=== PATIENT | female | born 1940 | race Caucasian/White ===

== ENCOUNTER → 2016-12-29 | Outpatient (CLI) | payer MEDICARE, BC ==
--- NOTE | 2017-01-04 10:02 | P.ARTDOP ---
Arterial Doppler LOWER EXTREMITY ARTERIAL DOPPLER: DATE OF SERVICE: 12/29/2016 Reason for study: Bilateral foot numbness and claudication. Doppler waveforms: Multiphasic bilaterally throughout. Pulse volume recording: Normal configuration. Pressure gradients: None. Ankle-brachial indices: Greater than 1 bilaterally. Toe pressures: 106 on the right, 120 on the left Impression: Normal study.
== END | disposition home or self-care (01) ==
LOC: RADUSWWP 11:51
PROVIDERS: ATTEND Family Medicine
DX: I73.9 Peripheral vascular disease, unspecified (principal)
CPT/HCPCS: 93923

== ENCOUNTER 2021-10-20 07:27 | Day surgery (SDC) | payer MEDICARE, BC ==
[2021-10-18 09:06] VITALS: BMI 24.0
[2021-10-20] MEDS ORDERED: LIDOCAINE 1% (10MG/ML) FOR IV START INTRADERMA PRN (07:28)
[2021-10-20] MEDS ORDERED: LACTATED RINGERS 1,000 ML IV SCH (07:28)
[2021-10-20 08:18] VITALS: TEMP 97
[2021-10-20 08:19] LABS: Glucose,Whole Blood 174 mg/dL (70-110)
[2021-10-20] MEDS ORDERED: PROPOFOL 10 MG/ML 50 ML VIAL IV ONE (08:23)
--- NOTE | 2021-10-20 08:48 | P.PCN ---
Date of Procedure: 10/20/21 Procedure(s) Performed: BRIEF HISTORY: Patient is a 80-year-old pleasant female scheduled for an elective colonoscopy as a part of evaluation of prior history of colon polyps. Her last colonoscopy was 3 years ago. PROCEDURE PERFORMED: Colonoscopy with snare polypectomy. PREOPERATIVE DIAGNOSIS: History of colon polyps. IV sedation per Anesthesia. PROCEDURE: After informed consent was obtained, the patient, was brought into the endoscopy unit. IV sedation was administered by Anesthesia under continuous monitoring. Digital rectal examination was normal. Initially the Olympus CF-160 flexible video colonoscope was then inserted in the rectum, gradually advanced into the cecum without any difficulty. Careful examination was performed as the scope was gradually being withdrawn. Ileocecal valve and the appendiceal orifice were visualized and appeared normal. Prep was excellent. Mucosa of the cecum, appeared normal. Ascending colon there was a 3 mm and 1 cm polyp removed by snare polypectomy. In the transverse colon there was a 7 mm polyp removed by snare polypectomy. Rest of the ascending colon, transverse colon, descending colon, sigmoid colon, and rectum appeared normal. Scattered sigmoid diverticulosis. Retroflexion was performed in the rectum and no lesions were seen. The patient tolerated the procedure well. IMPRESSION: 3 mm and 1 cm ascending colon polyp status post polypectomy 7 mm transverse colon polyp status post polypectomy Scattered sigmoid diverticulosis RECOMMENDATIONS: Findings of this examination were discussed with the patient as well as her family. She was advised to follow with the biopsy results. If the biopsy reveals adenoma she can have a repeat colonoscopy in 3 years..
[2021-10-20 08:50] VITALS: PULSE 56
[2021-10-20 09:11] VITALS: BP 139/67; RESP 18
== END 2021-10-20 09:30 | disposition home or self-care (01) ==
LOC: ORWHC2ENDO 07:27
PROVIDERS: ATTEND Internal Medicine Gastroenterology
DX: Z12.11 Encounter for screening for malignant neoplasm of colon (principal); D12.2 Benign neoplasm of ascending colon; D12.3 Benign neoplasm of transverse colon; K57.30 Diverticulosis of large intestine without perforation or abscess without bleeding; Z86.010 Personal history of colon polyps; I10 Essential (primary) hypertension; E11.9 Type 2 diabetes mellitus without complications; Z79.84 Long term (current) use of oral hypoglycemic drugs; Z79.899 Other long term (current) drug therapy; Z88.7 Allergy status to serum and vaccine; Z87.891 Personal history of nicotine dependence; Z80.7 Family history of other malignant neoplasms of lymphoid, hematopoietic and related tissues
CPT/HCPCS: 88305; 45385; J2704

== ENCOUNTER → 2023-05-03 | Outpatient (CLI) | payer MEDICARE, BC ==
--- NOTE | 2023-05-03 15:29 | USB ---
Risk Values: Nancy 5 year model risk: 1.0%. NCI Lifetime model risk: 1.4%. Technique: Method: Whole Breast Handheld. Findings: The whole breast of the left breast, the axilla of the left breast and the retroareolar of the left breast were scanned. A complete US of all four quadrants of the breast, axilla, and retro-areolar region were reviewed. At the 11:00 position, 6 cm from the nipple, sonographic correlate, there is a 7 x 6 x 6 mm vertically orientated irregular hypoechoic mass with echogenic halo that is very suspicious. No other solid or cystic lesion. No axillary lymphadenopathy. Overall Assessment: Highly suggestive of malignancy, BI-RAD 5 Management: Ultrasound Core Biopsy of the left breast. A 3-D MLO and 3-D LM view can be added to the patient's workup on the day of biopsy. Electronically signed and approved by: Neptali Flowers M.D. Radiologist
== END | disposition home or self-care (01) ==
LOC: RADUSWWP 11:44
PROVIDERS: ATTEND Family Medicine
DX: R92.8 Other abnormal and inconclusive findings on diagnostic imaging of breast (principal)

== ENCOUNTER → 2023-05-12 | Outpatient (CLI) | payer MEDICARE, BC ==
--- NOTE | 2023-05-15 08:53 | MM ---
Reason for Exam: Additional evaluation requested from abnormal screening. Last screening mammogram was performed 2 month(s) ago. Risk Values: Nancy 5 year model risk: 1.0%. NCI Lifetime model risk: 1.4%. Tissue Density: Left: The breast tissue is heterogeneously dense. This may lower the sensitivity of mammography. Findings: Analyzed By CAD. On the lateral view, patient's suspicious mass at the 11:00 position is identified. There is a central asymmetric density middle to posterior depth also present but this does not persist on additional views. Proceed with biopsy of the 11:00 mass. Overall Assessment: Highly suggestive of malignancy, BI-RAD 5 Management: Ultrasound Core Biopsy of the left breast. Electronically signed and approved by: Neptali Flowers M.D. Radiologist
== END | disposition home or self-care (01) ==
LOC: RADMAMWWP 12:48
PROVIDERS: ATTEND Family Medicine
DX: Z53.9 Procedure and treatment not carried out, unspecified reason (principal)

== ENCOUNTER → 2023-05-17 | Day surgery (SDC) | payer MEDICARE, BC ==
--- NOTE | 2023-05-24 13:55 | MM ---
Reason for Exam: Post Procedure Mammogram. Last screening mammogram was performed 2 month(s) ago. Patient History: Menarche at age 17. First Full-Term at age 21. Postmenopausal. Risk Values: Nancy 5 year model risk: 1.3%. NCI Lifetime model risk: 1.7%. Prior Study Comparison: 02/26/2019 Bilateral Screening Mammogram, [facility]. 03/05/2020 Bilateral Screening Mammogram, [facility]. 03/09/2021 Bilateral Screening Mammogram, [facility]. 03/10/2022 Bilateral Screening Mammogram, [facility]. 03/14/2023 Bilateral Screening Mammogram, [facility]. 05/12/2023 Left MG 3D work up w/cad LT, [facility]. Tissue Density: Left: The breasts are heterogeneously dense, which may obscure small masses. Pathology Description: Location: 11 o'clock. Marker Left Behind. Needle Type: Mammotome Cores: 5 Skin Nicks: 1 Gauge: 13 The procedure of ultrasound guided core biopsy was explained to the patient. Benefits, alternatives, and risks were discussed. An informed consent was then obtained. A timeout was performed. The patient was placed in supine positioning for imaging and for the procedure. The overlying skin was prepped and draped in usual sterile fashion. Lidocaine was used as anesthetic into the skin and subcutaneous tissue up to area of concern in the left breast. A small skin john was made with surgical scalpel. Under ultrasound guidance, a 12-gauge vacuum assisted biopsy gun device was used to obtain 5 core samples. A biopsy clip was left in lesion. Hydromark butterfly core marker was placed. The patient tolerated the procedure well without any immediate complication. The patient was kept in the radiology department for short stay after the procedure and then discharged home in stable condition. Postprocedure mammogram: The patient was transferred to mammography for physician ordered post procedure mammogram for clip placement verification. Clip is in appropriate location for the patient's biopsy. Impression: Successful ultrasound guided core biopsy of area of concern in the left breast, full pathology results to follow. Recommendations: 1. Recommendations are pending pathology results. Pathology Results: Result: Malignant, Invasive ductal carcinoma. LEFT BREAST, ELEVEN O'CLOCK, NEEDLE CORE BIOPSY: Invasive well differentiated ductal carcinoma (grade 1). See Surgical Pathology Cancer Case Summary. Overall Assessment: Malignant Assessment: MG diagnostic mammo LT wo CAD. - Left: Known biopsy proven malignancy, BI-RAD 6. Management: Diagnostic Mammogram of the left breast in 6 months. Surgical Consultation of the left breast. Electronically signed and approved by: Junior Guo D.O. Radiologis
== END ==
LOC: RADUSWWP 09:32
PROVIDERS: ATTEND Family Medicine
DX: C50.412 Malignant neoplasm of upper-outer quadrant of left female breast (principal)
CPT/HCPCS: 88305; 88342; 88341; 77065; 19083; A4648

== ENCOUNTER → 2023-06-29 | Outpatient (CLI) | payer MEDICARE, BC ==
--- NOTE | 2023-06-29 12:49 | P.GSCN ---
History of Present Illness Consult date: 06/29/23 Reason for Consult: left breast stage 1 invasive ductal cancer Requesting physician: Kindra Khanna History of present illness: Aysha is an 82 year old female seen in consultation for Dr. Khanna regarding a biopsy proven left breast invasive ductal cancer. She had a bilateral mammogram on 03-14-23, this led to a left breast diagnostic mammogram on 05-12-23, and an ultrasound of the left breast on 05-03-23. A lesion at 11:00 was noted that was about 8 mm in size. Biopsy was done on 05-17-23. The lesion was G1, ER+Pr+Her2- invasive ductal cancer. She did not feel anything of concern prior to the biopsy. The mammogram was a routine mammogram. She has not had any biopsies of her breast in the past. She is not complaining of any trauma or infection of the breast. She has not had any nipple discharge or skin changes. She has never had any surgery on her breast. Caffiene: tea, 2 cups/day nicotine: none BCP: for about 2 years, in remote past chocolate: occasional Family History: mother: Hodgkins paternal uncle: leukemia at 84 Hormonal History: menarche: 16 , breast fed: no, age at first : 21 menopause: 53 hormones: none Surgical History: lichen sclerosis/ biopsy Blepharoplasty cataract surgery Medical History: collitis constipation gullian barree at 32 no vaccines since then Social History: nicotine: none alcohol: weekly wine drugs: none Review of Systems - Constitutional Denies fever, Denies weight loss - EENT Eyes: denies blurred vision Ears: bilateral: tinnitus, deny: decreased hearing Ears, nose, mouth and throat: Denies dysphagia - Breasts bilateral: as per HPI - Cardiovascular Denies chest pain, Denies shortness of breath - Respiratory Denies cough, Denies 7 - Gastrointestinal Reports as per HPI, Reports constipation - Genitourinary Genitourinary: Denies dysuria, Denies hematuria Menstruation: Reports postmenopausal - Musculoskeletal Reports myalgias - Integumentary Denies rash, Denies unusual bruising - Neurological Reports weakness - Psychiatric Reports anxiety - Endocrine Reports weight change - Hematologic/Lymphatic Denies easy bleeding, Denies easy bruising - Allergic/Immunologic Reports seasonal allergies Past Medical History Past Medical History: GERD/Reflux, Hypertension Additional Past Medical History / Comment(s): 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 History of Any Multi-Drug Resistant Organisms: None Reported Past Surgical History: No Surgical Hx Reported Additional Past Surgical History / Comment(s): colonoscopy Past Anesthesia/Blood Transfusion Reactions: No Reported Reaction - Sexual Orientation/Gender Identity What was your sex assigned at ?: Female Preferred Pronoun: She/Her/Hers Past Psychological History: No Psychological Hx Reported Smoking Status: Former smoker Past Alcohol Use History: Occasional Additional Past Alcohol Use History / Comment(s): quit smoking in her 40's , smoked occasionally. Past Drug Use History: None Reported - Past Family History Mother Family Medical History: Cancer Additional Family Medical History / Comment(s): hodgkins Medications and Allergies Home Medications Medication Instructions Recorded Confirmed Type Acetaminophen [Tylenol Extra 500 mg PO DAILY PRN 10/18/21 06/29/23 History Strength] Betamethasone Dipropionate 1 applic TOPICAL DAILY 10/18/21 06/29/23 History [Diprolene 0.05% Lotion] Enalapril [Vasotec] 20 mg PO DAILY 10/18/21 06/29/23 History Zolpidem [Ambien] 10 mg PO HS PRN 10/18/21 06/29/23 History amLODIPine 10 mg PO DAILY 10/18/21 06/29/23 History metFORMIN HCL [Glucophage] 500 mg PO BID 10/18/21 06/29/23 History Allergies Allergy/AdvReac Type Severity Reaction Status Date / Time VACCINES Allergy Unknown unable to Uncoded 06/29/23 12:23 take due to guillian barre. Surgical - Exam Vital Signs Temp Pulse Resp BP Pulse Ox 97.8 F 104 H 17 122/90 97 06/29/23 12:24 06/29/23 12:24 06/29/23 12:24 06/29/23 12:24 06/29/23 12:24 - General moderate distress - Eyes normal ocular movement - ENT no hearing loss - Neck trachea midline - Respiratory normal respiratory effort, clear to auscultation - Cardiovascular Rhythm: regular Heart Sounds: normal: S1, S2 - Abdomen Abdomen: soft, non tender, no guarding, no rigid, no rebound - Integumentary normal turgor - Neurologic no disoriented, no combative - Musculoskeletal normal gait - Psychiatric oriented to time, oriented to person, oriented to place, speech is normal, memory intact Breast Exam: BRA: 36B Inspection: grade 2 ptosis bilateral palpation: right breast: Multi positional exam fibrocystic changes no dominant masses or nodules of concern Right axilla: No adenopathy of concern Left breast: Multi positional exam no dominant masses or nodules of concern Left axilla: No adenopathy of concern Left breast biopsy site clean and dry well-healed no evidence of infection or hematoma Results Mammogram personally reviewed with Dr. 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 Khanna
[2023-06-29 12:58] VITALS: BP 122/90; PULSE 104; RESP 17; TEMP 97.8
== END ==
LOC: WWCWWP 11:22
PROVIDERS: ATTEND Surgery
DX: Z01.818 Encounter for other preprocedural examination (principal); C50.912 Malignant neoplasm of unspecified site of left female breast; G62.9 Polyneuropathy, unspecified; Z87.891 Personal history of nicotine dependence; Z17.0 Estrogen receptor positive status [ER+]; Z88.7 Allergy status to serum and vaccine

== ENCOUNTER → 2023-08-10 | Outpatient (CLI) | payer MEDICARE, BC ==
--- NOTE | 2023-08-10 12:40 | P.PN ---
Subjective Progress Note Date: 08/10/23 Principal diagnosis: left breast invasive ductal cancer [id number]+Pr+Her2-G1 stage IA History of Present Illness Consult date: 08-10-23 Reason for Consult: left breast stage 1 invasive ductal cancer Requesting physician: Kindra Khanna History of present illness: Aysha is an 82 year old female seen in consultation for Dr. Khanna regarding a biopsy proven left breast invasive ductal cancer. She had a bilateral mammogram on 03-14-23, this led to a left breast diagnostic mammogram on 05-12-23, and an ultrasound of the left breast on 05-03-23. A lesion at 11:00 was noted that was about 8 mm in size. Biopsy was done on 05-17-23. The lesion was G1, ER+Pr+Her2- invasive ductal cancer. She did not feel anything of concern prior to the biopsy. The mammogram was a routine mammogram. She has not had any biopsies of her breast in the past. She is not complaining of any trauma or infection of the breast. She has not had any nipple discharge or skin changes. She has never had any surgery on her breast. The patient's case was presented at tumor board and 07-11-2023. The consensus was for a needle localization lumpectomy with no sentinel node biopsy. I have called the patient and discussed this with the patient. She will most likely receive hormone therapy. She will meet with radiation oncology but may not need radiation therapy. The patient is aware and will be seen in the near future. The case was reviewed with Dr. Armijo, it appears that the clip has migrated and the lesion to be localized is ultrasound localization of the tumor. Preoperative clearance by Dr. Armendariz Presentation of case at tumor board After discussion with the patient she would prefer to have a needle localization lumpectomy with possible oncoplastic tissue transfer, she would like to avoid a sentinel node biopsy. We have discussed the choosing wisely guidelines and this is reasonable Caffiene: tea, 2 cups/day nicotine: none BCP: for about 2 years, in remote past chocolate: occasional Family History: mother: Hodgkins paternal uncle: leukemia at 84 Hormonal History: menarche: 16 , breast fed: no, age at first : 21 menopause: 53 hormones: none Surgical History: lichen sclerosis/ biopsy Blepharoplasty cataract surgery Medical History: collitis constipation gullian barree at 32 no vaccines since then Social History: nicotine: none alcohol: weekly wine drugs: none Review of Systems - Constitutional Denies fever, Denies weight loss - EENT Eyes: denies blurred vision Ears: bilateral: tinnitus, deny: decreased hearing Ears, nose, mouth and throat: Denies dysphagia - Breasts bilateral: as per HPI - Cardiovascular Denies chest pain, Denies shortness of breath - Respiratory Denies cough - Gastrointestinal Reports as per HPI, Reports constipation - Genitourinary Genitourinary: Denies dysuria, Denies hematuria Menstruation: Reports postmenopausal - Musculoskeletal Reports myalgias - Integumentary Denies rash, Denies unusual bruising - Neurological Reports weakness - Psychiatric Reports anxiety - Endocrine Reports weight change - Hematologic/Lymphatic Denies easy bleeding, Denies easy bruising - Allergic/Immunologic Reports seasonal allergies Past Medical History Past Medical History: GERD/Reflux, Hypertension Additional Past Medical History / Comment(s): 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 History of Any Multi-Drug Resistant Organisms: None Reported Past Surgical History: No Surgical Hx Reported Additional Past Surgical History / Comment(s): colonoscopy Past Anesthesia/Blood Transfusion Reactions: No Reported Reaction - Sexual Orientation/Gender Identity What was your sex assigned at ?: Female Preferred Pronoun: She/Her/Hers Past Psychological History: No Psychological Hx Reported Smoking Status: Former smoker Past Alcohol Use History: Occasional Additional Past Alcohol Use History / Comment(s): quit smoking in her 40's , smoked occasionally. Past Drug Use History: None Reported - Past Family History Mother Family Medical History: Cancer Additional Family Medical History / Comment(s): hodgkins Medications and Allergies Home Medications Medication Instructions Recorded Confirmed Type Acetaminophen [Tylenol Extra 500 mg PO DAILY PRN 10/18/21 06/29/23 History Strength] Betamethasone Dipropionate 1 applic TOPICAL DAILY 10/18/21 06/29/23 History [Diprolene 0.05% Lotion] Enalapril [Vasotec] 20 mg PO DAILY 10/18/21 06/29/23 History Zolpidem [Ambien] 10 mg PO HS PRN 10/18/21 06/29/23 History amLODIPine 10 mg PO DAILY 10/18/21 06/29/23 History metFORMIN HCL [Glucophage] 500 mg PO BID 10/18/21 06/29/23 History Allergies Allergy/AdvReac Type Severity Reaction Status Date / Time VACCINES Allergy Unknown unable to Uncoded 06/29/23 12:23 take due to guillian barre. Objective - Vital Signs Vital signs: Vital Signs Temp 98.1 F 08/10/23 12:13 Pulse 104 H 08/10/23 12:13 Resp 17 08/10/23 12:13 BP 128/83 08/10/23 12:13 Pulse Ox 98 08/10/23 12:13 FiO2 Intake & Output 08/09/23 08/10/23 08/10/23 18:59 06:59 18:59 Weight 60.328 kg - Constitutional General appearance: Present: cooperative - EENT Eyes: Present: EOMI ENT: Present: hearing grossly normal - Neck Neck: Present: normal ROM - Respiratory Respiratory: bilateral: CTA - Cardiovascular Heart sounds: normal: S1, S2 - Integumentary Integumentary: Present: normal turgor - Musculoskeletal Musculoskeletal: Present: gait normal - Psychiatric Psychiatric: Present: A&O x's 3, appropriate affect, intact judgment & insight - Additional findings Additional findings: Breast Exam: BRA: 36B Inspection: grade 2 ptosis bilateral palpation: right breast: Multi positional exam fibrocystic changes no dominant masses or n odules of concern Right axilla: No adenopathy of concern Left breast: Multi positional exam no dominant masses or nodules of concern Left axilla: No adenopathy of concern Left breast biopsy site clean and dry well-healed no evidence of infection or hematoma Assessment and Plan Assessment: Impression: 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 Armijo, it appears that the clip has migrated and the lesion to be localized is ultrasound localization of the tumor. Preoperative clearance by Dr. Armendariz Presentation of case at tumor board After discussion with the patient she would prefer to have a needle localization lumpectomy with possible oncoplastic tissue transfer, she would like to avoid a sentinel node biopsy. We have discussed the choosing wisely guidelines and this is reasonable. Risk and benefits of the procedure discussed with the patient. Risk include but are not limited to bleeding, infection, reaction to the anesthetic. If the margins were to be positive further tissue acquisition may be necessary. She understands and wishes to proceed. education given to patient 08-10-23 Functional Assessment: arm abduction passed 08-09 CC: Dr. Khanna
[2023-08-10 13:08] VITALS: BP 128/83; PULSE 104; RESP 17; TEMP 98.1
== END ==
LOC: WWCWWP 11:47
PROVIDERS: ATTEND Surgery
DX: C50.912 Malignant neoplasm of unspecified site of left female breast (principal); G62.9 Polyneuropathy, unspecified; Z17.0 Estrogen receptor positive status [ER+]; Z88.7 Allergy status to serum and vaccine; Z87.891 Personal history of nicotine dependence

== ENCOUNTER 2023-08-29 07:05 | Day surgery (SDC) | payer MEDICARE, BC ==
[~2023-08-29 07:05] MED LIST: MIDAZOLAM 2 MG/2 ML VIAL IV PRN
[2023-08-29 08:27] LABS: Glucose,Whole Blood 169 mg/dL (70-110)
[2023-08-29] MEDS: ACETAMINOPHEN TAB 500 MG TAB PO PRN (08:34)
[2023-08-29] MEDS: LACTATED RINGERS 1,000 ML IV SCH (08:36)
[2023-08-29] MEDS: IV FLUID CONTINUATION 1,000 ML IV ONE (08:38)
[2023-08-29] MEDS: ONDANSETRON 4 MG/2 ML VIAL IVP ONE (09:29)
[2023-08-29] MEDS: HEPARIN SODIUM,PORCINE 5,000 UNIT/ML 1 ML VIAL SQ PRN (09:29)
[2023-08-29] MEDS: DEXAMETHASONE SOD PHOSPHATE 4 MG/ML 1 ML VIAL IV ONE (09:29)
[2023-08-29] MEDS ORDERED: PROPOFOL 10 MG/ML 20 ML VIAL IV ONE (11:55)
[2023-08-29] MEDS ORDERED: PHENYLEPHRINE-0.9% NACL SYG 1,000 MCG/10 ML SYRINGE ONE (11:55)
[2023-08-29] MEDS ORDERED: LIDOCAINE 1% INJ 10MG/ML (20 ML MDV) ONE (11:55)
[2023-08-29] MEDS ORDERED: fentaNYL (PF) 50 MCG/ML 2 ML AMP ONE (11:55)
[2023-08-29] MEDS: LIDOCAINE 1% INJ 10MG/ML (20 ML MDV) SQ ONE ×2 (12:31→13:13)
--- NOTE | 2023-08-29 13:22 | P.BCAON ---
Date of Procedure: 08/29/23 Preoperative Diagnosis: Left breast invasive ductal carcinoma Postoperative Diagnosis: Same Procedure(s) Performed: Needle localization lumpectomy, oncoplastic tissue transfer 41 cm Anesthesia: KULDIPA Surgeon: Jazzmine Adams Estimated Blood Loss (ml): 5 IV fluids (ml): 300 Pathology: other (breast tissue) Condition: stable Disposition: same day Indications for Procedure: Biopsy-proven left breast invasive ductal carcinoma Operative Findings: Fibrofatty breast tissue Description of Procedure: The patient was initially seen in the radiology department where needle localization of the area of concern was performed. The patient did not want to have a sentinel node biopsy performed. And utilizing the choosing wisely criteria 1 was not recommended. The patient was then brought to the operative suite. Following induction of anesthesia the left breast was prepped and draped in a sterile fashion. An incision was made near the area of the needle. Dissection was performed through the breast tissue to the shaft of the needle. The specimen was grasped using an Allis clamp. Wide excision was performed. The tip of the needle was embedded in the pectoralis muscle. This was dissected free. Posterior dissection was on the pectoralis muscle. The specimen was removed and painted for orientation. Radiograph of the specimen revealed the area of concern had been removed. The cavity was well irrigated using saline solution. The cavity was 6 x 3 cm. A superior pedicle 5 x 3 cm was developed. An inferior pedicle 4 x 2 cm was developed. Hemostasis was attained using the electrocautery device. Surgicel powder form was placed. Titanium clips were placed. Again posterior dissection was on the pectoralis muscle. The superior and inferior pillars were brought together using 3-0 Vicryl suture. After we are sure that hemostasis was attained the deep tissues were closed using 3-0 Vicryl suture. The skin was closed using 4-0 Monocryl. Surgical glue was placed. Prior to this 10 cc of 1% lidocaine was used to anesthetize the area. The patient tolerated the procedure in stable condition. All instrument and sponge counts were correct at the end of the case. - Sentinal Node Biopsy Operation performed with curative intent: Yes Tracer(s) used in upfront surgery (non-neoadjuvant): N/A Tracer(s) used in the neoadjuvant setting: N/A - Axillary Lymph Node Dissection Operation performed with curative intent: No
--- NOTE | 2023-08-29 13:26 | P.NAPBC ---
NAPBC Queries - NAPBC Queries Was patient's case review presented at [facility] tumor board? If no, comment.: Yes Was patient's pathology reviewed at [facility]? If no, comment.: Yes Was breast conservation surgery offered? If no, comment.: Yes Was sentinel node biopsy offered? If no, comment.: Yes (choose to follow chosing wisely guidelines, no SNB) Was diagnosis confirmed by percutaneous core biopsy? If no, comment.: Yes Is patient mastectomy patient?: No Was a preop referral to reconstructive surgeon offered?: No Clinical Stage: stage IA [id number]-G1, left breast invasive ductal carcinoma
[2023-08-29 13:44] VITALS: TEMP 97.8
[2023-08-29] MEDS: HYDROmorphone 0.5 MG/0.5 ML SYRINGE IVP PRN (13:46)
[2023-08-29 14:02] LABS: Glucose,Whole Blood 167 mg/dL (70-110)
[2023-08-29 14:40] VITALS: BP 137/63; PULSE 116; RESP 17
== END 2023-08-29 15:04 | disposition home or self-care (01) ==
LOC: OR 07:05
PROVIDERS: ATTEND Surgery
DX: C50.412 Malignant neoplasm of upper-outer quadrant of left female breast (principal); Z17.0 Estrogen receptor positive status [ER+]; I10 Essential (primary) hypertension; K21.9 Gastro-esophageal reflux disease without esophagitis; F41.9 Anxiety disorder, unspecified; E11.69 Type 2 diabetes mellitus with other specified complication; E78.5 Hyperlipidemia, unspecified; E11.40 Type 2 diabetes mellitus with diabetic neuropathy, unspecified; I48.91 Unspecified atrial fibrillation; Z87.891 Personal history of nicotine dependence; Z88.7 Allergy status to serum and vaccine; Z79.84 Long term (current) use of oral hypoglycemic drugs; Z79.899 Other long term (current) drug therapy
CPT/HCPCS: 88307; 77065; 76098; 76999; 19285; 19301; 14301; J1644; J1100; J0690; J2405; J2001; J3010; J2704; J1170; J2371

== ENCOUNTER → 2023-09-04 | Outpatient (CLI) | payer MEDICARE, BC ==
[2023-09-04 11:36] VITALS: BP 127/81; PULSE 120; RESP 17; TEMP 97.6
--- NOTE | 2023-09-04 11:41 | P.BCPO ---
Progress Note - Text Progress Note Date: 09/04/23 Aysha is an 82 year old status post left breast lumpectomy on 08-29-23. This revealed a 1.2 cm invasive ductal cancer, all margins (-). She tolerated the procedure without difficulty. She did have some constipation postprocedure but has taken some laxatives and this is resolved. Examination: Lungs: Clear Heart: S1-S2 Incision: Clean and dry there is some mild swelling most likely consistent with a small seroma which is asymptomatic at this time Impression: Patient doing well postoperative Plan: Follow-up radiation oncology Follow-up medical oncology Follow-up here in 4 months Follow-up sooner any questions or concerns Post Op Education - Post Op Education Post Op Education Provided Date: 09/04/23 - Functional Assessment Performed?: Yes (arm abduction) Path Report - Was patient given path report? Path Report Date Given: 09/04/23
== END ==
LOC: WWCWWP 11:17
PROVIDERS: ATTEND Surgery
DX: Z48.817 Encounter for surgical aftercare following surgery on the skin and subcutaneous tissue (principal); L76.82 Other postprocedural complications of skin and subcutaneous tissue; Z98.890 Other specified postprocedural states; Z85.3 Personal history of malignant neoplasm of breast; Z88.7 Allergy status to serum and vaccine

== ENCOUNTER → 2023-11-03 | Outpatient (CLI) | payer MEDICARE, BC ==
[~2023-11-03] MED LIST changes: -MIDAZOLAM 2 MG/2 ML VIAL IV PRN; +REGADENOSON 0.4 MG/5 ML SYRINGE IV ONE
--- NOTE | 2023-11-24 13:19 | CA ---
Lexiscan Nuclear Stress Test Report Name: Aysha Loo Exam Date: 11/03/2023 10:25 Exam Location: [place] Stress Ht (in): 64 Wt (lb): 130 BSA: 1.63 Ordering Phys: Referring Phys: ALESIA DOSHI Technologist: Ponce Leyva Age: 82 Gender: F : 1940 Procedure CPT: Indications: ICD-10 Codes: Patient History: Abnormal EKG, palpitations and hypertension Medications: Meds past 24 hrs: Pretest Chest Pain: STRESS TEST Lexiscan Protocol Exercise Duration (min:sec): 02:[address] Depressions (mm): Angina Score: Perez Score: Resting HR (bpm): 108 Peak HR (bpm): 142 Resting BP (mmHg): 136 / 89 Peak BP (mmHg): 129 / 88 MPHR: 138 Target HR: 117 % MPHR: 103 METS: 1.0 Total Dose: Peak Dose: Atropine: Double Product: 61617 BP Response: Stress Termination: TEST COMPLETE Stress Symptoms: No chest pain or symptoms Stress Summary: ECG ANALYSIS Resting ECG: Atrial fibrillation, heart rate 116 beats a minute, normal axis, nonspecific ST changes Stress ECG: A. fib ablation heart rate 120 beats a minute CONCLUSIONS RESTING EKG: Atrial fibrillation with heart rate of 116 bpm, normal axis, nonspecific ST changes at rest Patient recieved IV infusion of Lexiscan 0.4mg and at peak infusion STRESS EKG showed: Atrial fibrillation with a heart rate of 125 bpm, normal axis and nonspecific ST changes. No significant ST changes diagnostic for ischemia. There were no significant ectopic beats or sustained arrhythmias other than baseline atrial fibrillation CONCLUSION: 1. Normal hemodynamic and heart response to Lexiscan infusion. 2. Non-ischemic EKG response to lexiscan infusion 3. Nuclear perfusion imaging is reported separately by the radiology team. Please refer to that report for complete interpretation of this study. Dr Mart Hernandez (Electronically Signed) Final Date: 03 November 2023 11:58
--- NOTE | 2023-12-06 13:07 | NM ---
EXAMINATION TYPE: NM stress cardiolite complete DATE OF EXAM: 11/04/2023 COMPARISON: NONE HISTORY: Coronary artery disease, heart palpitations TECHNIQUE: After the intravenous administration of 10.1 mCi Tc 99m Sestamibi - Cardiolite resting SP ECT images acquired. At peak stress 24 mCi Tc 99m Sestamibi - Stress images obtained. The patient was stressed with 0.4mg Lexiscan. FINDINGS: No fixed defects are evident. No reversible stress defects on Spect images. Very abnormal wall motion is evident with uncoordinated ventricular contraction. Some areas of dyskin esia. Be present including the cardiac apex, anterior wall and inferior wall Ejection fraction is calculated to be very low at 28 %. Correlate with echocardiography. IMPRESSION: 1. No obvious fixed or reversible perfusion defects. 2. Abnormal wall motion with a very low ejection fraction 28%. Recommend echocardiography for correla tion.
== END | disposition home or self-care (01) ==
LOC: RADNMMAIN 08:16
PROVIDERS: ATTEND Internal Medicine
DX: I25.10 Atherosclerotic heart disease of native coronary artery without angina pectoris (principal); I10 Essential (primary) hypertension; I48.91 Unspecified atrial fibrillation
CPT/HCPCS: 93017; 78452; A9500; J2785

== ENCOUNTER → 2023-12-27 | Outpatient (CLI) | payer MEDICARE, BC ==
[2023-12-27 09:48] VITALS: BP 137/83; PULSE 79; RESP 16; TEMP 98.2
--- NOTE | 2023-12-27 10:22 | P.PN ---
Subjective Progress Note Date: 12/27/23 Principal diagnosis: left breast invasive ductal cancer [id number]+Her2-G1 stage IA, Apr 2023 left breast invasive ductal cancer [id number]+Pr+Her2-G1 stage I April, left breast stage 1 invasive ductal cancer Requesting physician: Kindra Khanna History of present illness: Aysha is an 83 year old female seen in consultation for Dr. Khanna regarding a biopsy proven left breast invasive ductal cancer. She had a bilateral mammogram on 03-14-23, this led to a left breast diagnostic mammogram on 05-12-23, and an ultrasound of the left breast on 05-03-23. A lesion at 11:00 was noted that was about 8 mm in size. Biopsy was done on 05-17-23. The lesion was G1, ER+Pr+Her2- invasive ductal cancer. She did not feel anything of concern prior to the biopsy. The mammogram was a routine mammogram. She had not had any biopsies of her breast in the past. The patient's case was presented at tumor board and 07-11-2023. The consensus was for a needle localization lumpectomy with no sentinel node biopsy. I called the patient and discussed this with the patient. She will most likely receive hormone therapy. She will meet with radiation oncology but may not need radiation therapy. The patient is aware and will be seen in the near future. The patient on 08-29-23 underwent a left breast lumpectomy, this revelaed a 1.2 cm invasive ductal cancer, all margins were (-). note radiation oncology 09-20-23 reviewed and discussed with the patient, she opted to omit radiation therapy Dr. 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 and she has AFIB, she will have a cath She had Yusuf Juarez at the age of 33 and this may also have affected her feet Caffiene: tea, 2 cups/day nicotine: none BCP: for about 2 years, in remote past chocolate: occasional Family History: mother: Hodgkins paternal uncle: leukemia at 84 Hormonal History: menarche: 16 , breast fed: no, age at first : 21 menopause: 53 hormones: none Surgical History: lichen sclerosis/ biopsy Blepharoplasty cataract surgery Medical History: collitis constipation gullian barree at 32 no vaccines since then Social History: nicotine: none alcohol: weekly wine drugs: none Review of Systems - Constitutional Denies fever, Denies weight loss - EENT Eyes: denies blurred vision Ears: bilateral: tinnitus, deny: decreased hearing Ears, nose, mouth and throat: Denies dysphagia - Breasts bilateral: as per HPI - Cardiovascular Denies chest pain, Denies shortness of breath - Respiratory Denies cough - Gastrointestinal Reports as per HPI, Reports constipation - Genitourinary Genitourinary: Denies dysuria, Denies hematuria Menstruation: Reports postmenopausal - Musculoskeletal Reports myalgias - Integumentary Denies rash, Denies unusual bruising - Neurological Reports weakness - Psychiatric Reports anxiety - Endocrine Reports weight change - Hematologic/Lymphatic Denies easy bleeding, Denies easy bruising - Allergic/Immunologic Reports seasonal allergies Past Medical History Past Medical History: GERD/Reflux, Hypertension Additional Past Medical History / Comment(s): 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 History of Any Multi-Drug Resistant Organisms: None Reported Past Surgical History: No Surgical Hx Reported Additional Past Surgical History / Comment(s): colonoscopy Past Anesthesia/Blood Transfusion Reactions: No Reported Reaction - Sexual Orientation/Gender Identity What was your sex assigned at ?: Female Preferred Pronoun: She/Her/Hers Past Psychological History: No Psychological Hx Reported Smoking Status: Former smoker Past Alcohol Use History: Occasional Additional Past Alcohol Use History / Comment(s): quit smoking in her 40's , smoked occasionally. Past Drug Use History: None Reported - Past Family History Mother Family Medical History: Cancer Additional Family Medical History / Comment(s): hodgkins Medications and Allergies Home Medications Medication Instructions Recorded Confirmed Type Acetaminophen [Tylenol Extra 500 mg PO DAILY PRN 10/18/21 06/29/23 History Strength] Betamethasone Dipropionate 1 applic TOPICAL DAILY 10/18/21 06/29/23 History [Diprolene 0.05% Lotion] Enalapril [Vasotec] 20 mg PO DAILY 10/18/21 06/29/23 History Zolpidem [Ambien] 10 mg PO HS PRN 10/18/21 06/29/23 History amLODIPine 10 mg PO DAILY 10/18/21 06/29/23 History metFORMIN HCL [Glucophage] 500 mg PO BID 10/18/21 06/29/23 History Allergies Allergy/AdvReac Type Severity Reaction Status Date / Time VACCINES Allergy Unknown unable to Uncoded 06/29/23 12:23 take due to guillian barre. Objective - Vital Signs Vital signs: Vital Signs Temp 98.2 F 12/27/23 09:46 Pulse 79 12/27/23 09:46 Resp 16 12/27/23 09:46 BP 137/83 12/27/23 09:46 Pulse Ox 99 12/27/23 09:46 FiO2 Intake & Output 12/26/23 12/27/23 12/27/23 18:59 06:59 18:59 Weight 59.874 kg - Constitutional General appearance: Present: cooperative - EENT Eyes: Present: EOMI ENT: Present: hearing grossly normal - Neck Neck: Present: normal ROM - Respiratory Respiratory: bilateral: CTA - Cardiovascular Rhythm: regular Heart sounds: normal: S1, S2 - Integumentary Integumentary: Present: normal turgor - Musculoskeletal Musculoskeletal: Present: gait normal - Psychiatric Psychiatric: Present: A&O x's 3, appropriate affect, intact judgment & insight - Additional findings Additional findings: Breast Exam: BRA: 36B Inspection: grade 2 ptosis bilateral palpation: right breast: Multi positional exam fibrocystic changes no dominant masses or nodules of concern Right axilla: No adenopathy of concern Left breast: Multi positional exam no dominant masses or nodules of concern. well healed scar from prior surgery Left axilla: No adenopathy of concern Left breast biopsy site clean and dry well-healed no evidence of infection or hematoma Assessment and Plan Assessment: Impression: Stage Ia invasive ductal carcinoma left breast Neuropathy Plan: ordered repeat bilateral mammogram in February 2024 with appointment at that time patient to follow up at that time reviewed notes medical and radiation oncology CC: Dr. Armendariz
== END ==
LOC: WWCWWP 09:20
PROVIDERS: ATTEND Surgery
DX: Z85.3 Personal history of malignant neoplasm of breast

== ENCOUNTER → 2024-03-18 | Outpatient (CLI) | payer MEDICARE, BC ==
--- NOTE | 2024-03-18 10:30 | MM ---
Reason for Exam: Follow-up at short interval from prior study. Last screening mammogram was performed 12 month(s) ago. Patient History: Menarche at age 17. First Full-Term at age 21. Postmenopausal. Breast cancer, left, age 82. Breast cancer, left, age 82. 08/29/2023, Lumpectomy on the Left side. 08/29/2023, Malignant US breast localization LT on the left side. 05/17/2023, Malignant US biopsy breast VAD LT on the left side. Tissue Density: The breasts are heterogeneously dense, which may obscure small masses. Findings: Analyzed By CAD. The pattern is symmetrical. Postsurgical changes within the left breast with multiple surgical clips present. Scar marker overlies. Benign calcifications present bilaterally. Benign vascular calcification is present bilaterally No suspicious groups of microcalcifications, spiculated or lobular masses, architectural distortion or other secondary signs of malignancy are mammographically apparent. Overall Assessment: Benign, BI-RAD 2 Management: Diagnostic Mammogram of both breasts in 6 months. A negative mammogram report should not preclude additional follow up of suspicious palpable abnormalities. Patient should continue monthly self breast exam. A clinical breast exam by your physician is recommended on an annual basis and results should be correlated with mammographic findings. Note on Nancy scores and lifetime risk: 1. A Nancy score greater than 3% is considered moderate risk. If this is the case, consider specialist referral to assess eligibility for a risk reducing agent. 2. If overall lifetime risk for the development of breast cancer is 20% or higher, the patient may qualify for future screening with alternating mammogram and breast MRI. [facility], , 03/18/2024 10:23 AM. Electronically signed and approved by: Junior Guo D.O. Radiologis
== END | disposition home or self-care (01) ==
LOC: RADMAMWWP 09:56
PROVIDERS: ATTEND Surgery
DX: R92.333 Mammographic heterogeneous density, bilateral breasts (principal); Z78.0 Asymptomatic menopausal state; Z85.3 Personal history of malignant neoplasm of breast
CPT/HCPCS: 77066; G0279; 77062

== ENCOUNTER → 2024-03-29 | Outpatient (CLI) | payer MEDICARE, BC ==
[2024-03-29 12:56] VITALS: BP 119/76; PULSE 75; RESP 17; TEMP 97.5
--- NOTE | 2024-03-29 13:03 | P.PN ---
Subjective Progress Note Date: 03/29/24 Principal diagnosis: left breast invasive ductal cancer [id number]+Pr+Her2-G1 stage IA, Apr 2023 03-29-24 Principal diagnosis: left breast invasive ductal cancer [id number]+Pr+Her2-G1 stage IA, Apr 2023 Requesting physician: Kindra Khanna History of present illness: 12-27-23 Aysha is an 83 year old female seen in consultation for Dr. Khanna regarding a biopsy proven left breast invasive ductal cancer. She had a bilateral mammogram on 03-14-23, this led to a left breast diagnostic mammogram on 05-12-23, and an ultrasound of the left breast on 05-03-23. A lesion at 11:00 was noted that was about 8 mm in size. Biopsy was done on 05-17-23. The lesion was G1, ER+Pr+Her2- invasive ductal cancer. She did not feel anything of concern prior to the biopsy. The mammogram was a routine mammogram. She had not had any biopsies of her breast in the past. The patient's case was presented at tumor board and 07-11-2023. The consensus was for a needle localization lumpectomy with no sentinel node biopsy. I called the patient and discussed this with the patient. She will most likely receive hormone therapy. She will meet with radiation oncology but may not need radiation therapy. The patient is aware and will be seen in the near future. The patient on 08-29-23 underwent a left breast lumpectomy, this revelaed a 1.2 cm invasive ductal cancer, all margins were (-). note radiation oncology 09-20-23 reviewed and discussed with the patient, she opted to omit radiation therapy Dr. 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 All margins (-). declined radiation therapy declined endocrine therapy bilateral mammogram on 03-18-24 BIRAD 2, personally interpreted; repeat in 6 months She is not complaining of any new lumps masses or nodules of concern Caffiene: tea, 2 cups/day nicotine: none BCP: for about 2 years, in remote past chocolate: occasional Family History: mother: Hodgkins paternal uncle: leukemia at 84 Hormonal History: menarche: 16 , breast fed: no, age at first : 21 menopause: 53 hormones: none Surgical History: lichen sclerosis/ biopsy Blepharoplasty cataract surgery Medical History: collitis constipation gullian barree at 32 no vaccines since then Social History: nicotine: none alcohol: weekly wine drugs: none Review of Systems - Constitutional Denies fever, Denies weight loss - EENT Eyes: denies blurred vision Ears: bilateral: tinnitus, deny: decreased hearing Ears, nose, mouth and throat: Denies dysphagia - Breasts bilateral: as per HPI - Cardiovascular Denies chest pain, Denies shortness of breath - Respiratory Denies cough - Gastrointestinal Reports as per HPI, Reports constipation - Genitourinary Genitourinary: Denies dysuria, Denies hematuria Menstruation: Reports postmenopausal - Musculoskeletal Reports myalgias - Integumentary Denies rash, Denies unusual bruising - Neurological Reports weakness - Psychiatric Reports anxiety - Endocrine Reports weight change - Hematologic/Lymphatic Denies easy bleeding, Denies easy bruising - Allergic/Immunologic Reports seasonal allergies Past Medical History Past Medical History: GERD/Reflux, Hypertension Additional Past Medical History / Comment(s): 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 History of Any Multi-Drug Resistant Organisms: None Reported Past Surgical History: No Surgical Hx Reported Additional Past Surgical History / Comment(s): colonoscopy Past Anesthesia/Blood Transfusion Reactions: No Reported Reaction - Sexual Orientation/Gender Identity What was your sex assigned at ?: Female Preferred Pronoun: She/Her/Hers Past Psychological History: No Psychological Hx Reported Smoking Status: Former smoker Past Alcohol Use History: Occasional Additional Past Alcohol Use History / Comment(s): quit smoking in her 40's , smoked occasionally. Past Drug Use History: None Reported - Past Family History Mother Family Medical History: Cancer Additional Family Medical History / Comment(s): hodgkins Medications and Allergies Home Medications Medication Instructions Recorded Confirmed Type Acetaminophen [Tylenol Extra 500 mg PO DAILY PRN 10/18/21 06/29/23 History Strength] Betamethasone Dipropionate 1 applic TOPICAL DAILY 10/18/21 06/29/23 History [Diprolene 0.05% Lotion] Enalapril [Vasotec] 20 mg PO DAILY 10/18/21 06/29/23 History Zolpidem [Ambien] 10 mg PO HS PRN 10/18/21 06/29/23 History amLODIPine 10 mg PO DAILY 10/18/21 06/29/23 History metFORMIN HCL [Glucophage] 500 mg PO BID 10/18/21 06/29/23 History Allergies Allergy/AdvReac Type Severity Reaction Status Date / Time VACCINES Allergy Unknown unable to Uncoded 06/29/23 12:23 take due to guillian barre. Objective - Constitutional General appearance: Present: cooperative - EENT Eyes: Present: EOMI ENT: Present: hearing grossly normal - Neck Neck: Present: normal ROM - Respiratory Respiratory: bilateral: CTA - Cardiovascular Rhythm: regular Heart sounds: normal: S1, S2 - Integumentary Integumentary: Present: normal turgor - Musculoskeletal Musculoskeletal: Present: gait normal - Psychiatric Psychiatric: Present: A&O x's 3, appropriate affect, intact judgment & insight - Additional findings Additional findings: Breast Exam: BRA: 36B Inspection: grade 2 ptosis bilateral palpation: right breast: Multi positional exam fibrocystic changes no dominant masses or nodules of concern Right axilla: No adenopathy of concern Left breast: Multi positional exam no dominant masses or nodules of concern. well healed scar from prior surgery Left axilla: No adenopathy of concern Left breast biopsy site clean and dry well-healed no evidence of infection or hematoma Assessment and Plan Assessment: Impression: Stage Ia invasive ductal carcinoma left breast 2023 Neuropathy Plan: bilateral mammogram in 6 months with appointment will follow with medical oncology, she is not taking any endocrine therapy CC: Dr. Armendariz
== END ==
LOC: WWCWWP 12:03
PROVIDERS: ATTEND Surgery
DX: C50.912 Malignant neoplasm of unspecified site of left female breast (principal); E11.40 Type 2 diabetes mellitus with diabetic neuropathy, unspecified; Z88.7 Allergy status to serum and vaccine; Z17.0 Estrogen receptor positive status [ER+]; Z17.21 Progesterone receptor positive status

== ENCOUNTER → 2024-09-16 | Outpatient (CLI) | payer MEDICARE, BC ==
--- NOTE | 2024-09-16 13:40 | MM ---
Reason for Exam: Hx of breast cancer, conservation therapy. Last screening mammogram was performed 6 month(s) ago. Patient History: Menarche at age 17. First Full-Term at age 21. Postmenopausal. Breast cancer, left, age 82. Breast cancer, left, age 82. 08/29/2023, Lumpectomy on the Left side. 08/29/2023, Malignant US breast localization LT on the left side. 05/17/2023, Malignant US biopsy breast VAD LT on the left side. Prior Study Comparison: 02/26/2019 Bilateral Screening Mammogram, [facility]. 03/05/2020 Bilateral Screening Mammogram, [facility]. 03/09/2021 Bilateral Screening Mammogram, [facility]. 03/10/2022 Bilateral Screening Mammogram, [facility]. 03/14/2023 Bilateral Screening Mammogram, [facility]. 05/12/2023 Left MG 3D work up w/cad LT, [facility]. 05/17/2023 Left MG diagnostic mammo LT wo CAD., [facility]. 08/29/2023 Left MG diagnostic mammo LT wo CAD., [facility]. 03/18/2024 Bilateral MG 3D diag mammo w/cad [facility], [facility]. Tissue Density: The breasts are heterogeneously dense, which may obscure small masses. Findings: Analyzed By CAD. Postsurgical and posttreatment changes left breast. Benign vascular and a few scattered oral cyst calcifications are redemonstrated. No significant change from prior exams. Overall Assessment: Probably benign, BI-RAD 3 Management: Diagnostic Mammogram of the left breast in 6 months. Ongoing short interval follow-up left breast for recent breast cancer treatment. Results were given to the patient verbally at the time of exam. Patient should continue monthly self-breast exams. A clinical breast exam by your physician is recommended on an annual basis. This exam should not preclude additional follow-up of suspicious palpable abnormalities. [facility], , 09/16/2024 1:36 PM. Electronically signed and approved by: Neptali Flowers M.D. Radiologist
== END | disposition home or self-care (01) ==
LOC: RADMAMWWP 13:00
PROVIDERS: ATTEND Surgery
DX: R92.333 Mammographic heterogeneous density, bilateral breasts (principal); R92.1 Mammographic calcification found on diagnostic imaging of breast; Z85.3 Personal history of malignant neoplasm of breast; Z98.890 Other specified postprocedural states; Z78.0 Asymptomatic menopausal state
CPT/HCPCS: 77066; G0279; 77062

== ENCOUNTER 2024-10-04 21:31 | Inpatient (IN) | payer MEDICARE, BC ==
[2024-10-04 22:20] LABS: Bacteria,Urine Rare /hpf; Bilirubin,Urine Negative (Negative); Blood,Urine Negative (Negative); Color,Urine Light Yellow; Glucose,Urine (UA) Negative (Negative); Hyaline Casts,Urine 3 /lpf (0-2); Ketones,Urine Negative (Negative); Leukocyte Esterase,Urine Small (Negative); Nitrite,Urine Negative (Negative); PH, Urine 6.5 (5.0-8.0); Protein,Urine Negative (Negative); RBC,Urine <1 /hpf (0-5); Specific Gravity,Urine 1.008 (1.001-1.035); Squamous Epithelial Cell,Urine <1 /hpf (0-4); Urobilinogen,Urine <2.0 mg/dL (<2.0); WBC,Urine 7 /hpf (0-5)
[2024-10-04 22:21] LABS: Basophils # (A) 0.06 10*3/uL (0.00-0.10); Basophils % (A) 0.3 %; Eosinophils # (A) 0.10 10*3/uL (0.04-0.35); Eosinophils % (A) 0.5 %; HCT 43.5 % (37.2-46.3); HGB 15.0 g/dL (12.0-15.0); Lymphocytes # (A) 1.21 10*3/uL (0.90-5.00); Lymphocytes % (A) 6.3 %; MCH 32.5 pg (27.0-32.0); MCHC 34.5 g/dL (32.0-37.0); MCV 94.4 fL (80.0-97.0); Monocytes # (A) 1.35 10*3/uL (0.20-1.00); Monocytes % (A) 7.0 %; Neutrophils # (A) 16.46 10*3/uL (1.80-7.70); Neutrophils % (A) 85.2 %; Platelet Count 334 10*3/uL (140-440); RBC 4.61 10*6/uL (4.10-5.20); RDW 12.4 % (11.5-14.5); WBC 19.32 10*3/uL (4.50-10.00)
--- NOTE | 2024-10-04 22:25 | ED ---
Abdominal Pain HPI - General Chief Complaint: Abdominal Pain Stated Complaint: Abd pain Time Seen by Provider: 10/04/24 21:40 Source: EMS Mode of arrival: EMS Limitations: no limitations - History of Present Illness Initial Comments: 83-year-old female past medical history of A-fib, diabetes who presents emergency department with generalized abdominal pain. States that started this evening around 6:30 PM. Describes it as an intermittent, cramping sensation. She has not been able to have a bowel movement in 2 days. Son at bedside states that she fluctuates from taking Pepcid with laxatives. She does have a history of colitis. She denies any black or bloody stools. No diarrhea. No sick contacts with similar symptoms. No fevers. Denies dysuria, hematuria or difficulty voiding. No vaginal bleeding or discharge. She denies any chest pain or shortness of breath. No other alleviating, precipitating or modifying factors - Related Data Home Medications Medication Instructions Recorded Confirmed Acetaminophen [Tylenol Extra 500 mg PO DAILY PRN 10/18/21 03/29/24 Strength] Betamethasone Dipropionate 1 applic TOPICAL DAILY 10/18/21 03/29/24 [Diprolene 0.05% Lotion] Enalapril [Vasotec] 20 mg PO DAILY 10/18/21 03/29/24 Zolpidem [Ambien] 10 mg PO HS PRN 10/18/21 03/29/24 amLODIPine 10 mg PO DAILY 10/18/21 03/29/24 metFORMIN HCL [Glucophage] 500 mg PO DAILY 10/18/21 03/29/24 Metoprolol Tartrate [Lopressor] 12.5 mg PO BID 08/24/23 03/29/24 Allergies Allergy/AdvReac Type Severity Reaction Status Date / Time VACCINES Allergy Unknown unable to Uncoded 10/04/24 21:47 take due to guillian barre. Review of Systems ROS Statement: Those systems with pertinent positive or pertinent negative responses have been documented in the HPI. ROS Other: All systems not noted in ROS Statement are negative. 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 2/28/24. History of Any Multi-Drug Resistant Organisms: None Reported Past Surgical History: No Surgical Hx Reported Additional Past Surgical History / Comment(s): colonoscopy, cataracts removed, malignant left breast core biopsy 05/17/23. Past Anesthesia/Blood Transfusion Reactions: No Reported Reaction Past Psychological History: No Psychological Hx Reported Smoking Status: Former smoker Past Alcohol Use History: Occasional Past Drug Use History: None Reported - Past Family History Mother Family Medical History: Cancer Additional Family Medical History / Comment(s): hodgkins General Exam Limitations: no limitations General appearance: alert, in no apparent distress Head exam: Present: atraumatic, normocephalic, normal inspection Eye exam: Present: normal appearance, PERRL, EOMI. Absent: scleral icterus, conjunctival injection, periorbital swelling ENT exam: Present: normal exam, mucous membranes moist Neck exam: Present: normal inspection. Absent: tenderness, meningismus, lymphadenopathy Respiratory exam: Present: normal lung sounds bilaterally. Absent: respiratory distress, wheezes, rales, rhonchi, stridor Cardiovascular Exam: Present: tachycardia, irregular rhythm, normal heart sounds. Absent: systolic murmur, diastolic murmur, rubs, gallop, clicks GI/Abdominal exam: Present: soft, normal bowel sounds. Absent: distended, tenderness, guarding, rebound, rigid Extremities exam: Present: normal inspection, full ROM, normal capillary refill. Absent: tenderness, pedal edema, joint swelling, calf tenderness Back exam: Present: normal inspection Neurological exam: Present: alert, oriented X3, CN II-XII intact Psychiatric exam: Present: normal affect, normal mood Skin exam: Present: warm, dry, intact, normal color. Absent: rash Course Vital Signs 10/04/24 10/04/24 10/04/24 21:36 22:46 23:58 Temperature Pulse Rate 136 H 103 H Respiratory 20 18 18 Rate Blood Pressure 143/103 123/90 132/85 O2 Sat by Pulse 98 97 Oximetry 10/05/24 01:36 Temperature 98.2 F Pulse Rate Respiratory Rate Blood Pressure O2 Sat by Pulse Oximetry Medical Decision Making - Medical Decision Making Was pt. sent in by a medical professional or institution (, PA, TOWEL FOLDER, urgent care, hospital, or [facility]...) When possible be specific @ -[No] Did you speak to anyone other than the patient for history (EMS, parent, family, police, friend...)? What history was obtained from this source @ -[No] Did you review nursing and triage notes (agree or disagree)? Why? @ -[I reviewed and agree with nursing and triage notes] Were old charts reviewed (outside hosp., previous admission, EMS record, old EKG, old radiological studies, urgent care reports/EKG's, [facility] records)? Report findings @ -[No old charts were reviewed] Differential Diagnosis (chest pain, altered mental status, abdominal pain women, abdominal pain men, vaginal bleeding, weakness, fever, dyspnea, syncope, headache, dizziness, GI bleed, back pain, seizure, CVA, palpatations, mental health, musculoskeletal)? @ -[not applicable] EKG interpreted by me (3pts min.). @ -Yes which demonstrates A-fib with a rate of 95. QRS 78. QTc of 399. No acute ST segment elevations or depressions X-rays interpreted by me (1pt min.). @ -[None done] CT interpreted by me (1pt min.). @ -[None done] U/S interpreted by me (1pt. min.). @ -[None done] What testing was considered but not performed or refused? (CT, X-rays, U/S, labs)? Why? @ -[None] What meds were considered but not given or refused? Why? @ -[None] Did you discuss the management of the patient with other professionals (professionals i.e. , PA, TOWEL FOLDER, lab, RT, psych nurse, social science teacher, leather goods ii assembler, teacher, chief environmental commitment officer, case coordinator)? Give summary @ -[No] Was smoking cessation discussed for >3mins.? @ -[No] Was critical care preformed (if so, how long)? @ -[No] Were there social determinants of health that impacted care today? How? (Homelessness, low income, unemployed, alcoholism, drug addiction, transportation, low edu. Level, literacy, decrease access to med. care, shelter, rehab)? @ -[No] Was there de-escalation of care discussed even if they declined (Discuss DNR or withdrawal of care, Hospice)? DNR status @ -[No] What co-morbidities impacted this encounter? (DM, HTN, Smoking, COPD, CAD, Cancer, CVA, ARF, Chemo, Hep., AIDS, mental health diagnosis, sleep apnea, morbid obesity)? @ -[None] Was patient admitted / discharged? Hospital course, mention meds given and route, prescriptions, significant lab abnormalities, going to OR and other pertinent info. @ -[hospital course] Undiagnosed new problem with uncertain prognosis? @ -[No] Drug Therapy requiring intensive monitoring for toxicity (Heparin, Nitro, Insulin, Cardizem)? @ -[No] Were any procedures done? @ -[No] Diagnosis/symptom? @ -[default] Acute, or Chronic, or Acute on Chronic? @ -[default] Uncomplicated (without systemic symptoms) or Complicated (systemic symptoms)? @ -[default] Side effects of treatment? @ -[No] Exacerbation, Progression, or Severe Exacerbation? @ -[No] Poses a threat to life or bodily function? How? (Chest pain, [place], [place], pneumonia, PE, COPD, DKA, ARF, appy, cholecystitis, CVA, Diverticulitis, Homicidal, Suicidal, threat to staff... and all critical care pts) @ -[No] - Lab Data Result diagrams: 10/04/24 22:15 10/04/24 22:15 Lab Results 10/04/24 10/04/24 10/04/24 Range/Units 22:05 22:15 22:15 WBC 19.32 H (4.50-10.00) 10*3/uL RBC 4.61 (4.10-5.20) 10*6/uL Hgb 15.0 (12.0-15.0) g/dL Hct 43.5 (37.2-46.3) % MCV 94.4 (80.0-97.0) fL MCH 32.5 H (27.0-32.0) pg MCHC 34.5 (32.0-37.0) g/dL Plt Count 334 (140-440) 10*3/uL MPV 10.4 (9.5-12.2) fL Immature Gran % (Auto) 0.7 % Neutrophils % 85.2 % Lymphocytes % 6.3 % Monocytes % 7.0 % Eosinophils % 0.5 % Basophils % 0.3 % Immature Gran # 0.14 H (0.00-0.04) 10*3/uL Neutrophils # 16.46 H (1.80-7.70) 10*3/uL Lymphocytes # 1.21 (0.90-5.00) 10*3/uL Monocytes # 1.35 H (0.20-1.00) 10*3/uL Eosinophils # 0.10 (0.04-0.35) 10*3/uL Basophils # 0.06 (0.00-0.10) 10*3/uL PT (10.0-12.5) sec INR (<1.2) Sodium 132 L (137-145) mmol/L Potassium 4.2 (3.5-5.1) mmol/L Chloride 100 (98-107) mmol/L Carbon Dioxide 18 L (22-30) mmol/L Anion Gap 14 mmol/L BUN 23 H (7-17) mg/dL Creatinine 0.98 (0.52-1.04) mg/dL Est GFR (CKD-EPI)AfAm 62 (>60 ml/min/1.73 sqM) Est GFR (CKD-EPI)NonAf 54 (>60 ml/min/1.73 sqM) Glucose 239 H (74-99) mg/dL Plasma Lactic Acid Jaya (0.7-2.0) mmol/L Calcium 9.7 (8.4-10.2) mg/dL Total Bilirubin 1.0 (0.2-1.3) mg/dL AST 28 (14-36) U/L ALT 16 (4-34) U/L Alkaline Phosphatase 86 (38-126) U/L Total Protein 7.3 (6.3-8.2) g/dL Albumin 4.6 (3.5-5.0) g/dL Lipase 113 (23-300) U/L Urine Color Light Yellow Urine Appearance Clear (Clear) Urine pH 6.5 (5.0-8.0) Ur Specific [place] 1.008 (1.001-1.035) Urine Protein Negative (Negative) Urine Glucose (UA) Negative (Negative) Urine Ketones Negative (Negative) Urine Blood Negative (Negative) Urine Nitrite Negative (Negative) Urine Bilirubin Negative (Negative) Urine Urobilinogen <2.0 (<2.0) mg/dL Ur Leukocyte Esterase Small H (Negative) Urine RBC <1 (0-5) /hpf Urine WBC 7 H (0-5) /hpf Ur Squamous Epith Cells <1 (0-4) /hpf Urine Bacteria Rare H (None) /hpf Hyaline Casts 3 H (0-2) /lpf 10/04/24 10/04/24 Range/Units 22:15 22:15 WBC (4.50-10.00) 10*3/uL RBC (4.10-5.20) 10*6/uL Hgb (12.0-15.0) g/dL Hct (37.2-46.3) % MCV (80.0-97.0) fL MCH (27.0-32.0) pg MCHC (32.0-37.0) g/dL Plt Count (140-440) 10*3/uL MPV (9.5-12.2) fL Immature Gran % (Auto) % Neutrophils % % Lymphocytes % % Monocytes % % Eosinophils % % Basophils % % Immature Gran # (0.00-0.04) 10*3/uL Neutrophils # (1.80-7.70) 10*3/uL Lymphocytes # (0.90-5.00) 10*3/uL Monocytes # (0.20-1.00) 10*3/uL Eosinophils # (0.04-0.35) 10*3/uL Basophils # (0.00-0.10) 10*3/uL PT 11.7 (10.0-12.5) sec INR 1.1 (<1.2) Sodium (137-145) mmol/L Potassium (3.5-5.1) mmol/L Chloride (98-107) mmol/L Carbon Dioxide (22-30) mmol/L Anion Gap mmol/L BUN (7-17) mg/dL Creatinine (0.52-1.04) mg/dL Est GFR (CKD-EPI)AfAm (>60 ml/min/1.73 sqM) Est GFR (CKD-EPI)NonAf (>60 ml/min/1.73 sqM) Glucose (74-99) mg/dL Plasma Lactic Acid Jaya 1.9 (0.7-2.0) mmol/L Calcium (8.4-10.2) mg/dL Total Bilirubin (0.2-1.3) mg/dL AST (14-36) U/L ALT (4-34) U/L Alkaline Phosphatase (38-126) U/L Total Protein (6.3-8.2) g/dL Albumin (3.5-5.0) g/dL Lipase (23-300) U/L Urine Color Urine Appearance (Clear) Urine pH (5.0-8.0) Ur Specific [place] (1.001-1.035) Urine Protein (Negative) Urine Glucose (UA) (Negative) Urine Ketones (Negative) Urine Blood (Negative) Urine Nitrite (Negative) Urine Bilirubin (Negative) Urine Urobilinogen (<2.0) mg/dL Ur Leukocyte Esterase (Negative) Urine RBC (0-5) /hpf Urine WBC (0-5) /hpf Ur Squamous Epith Cells (0-4) /hpf Urine Bacteria (None) /hpf Hyaline Casts (0-2) /lpf Disposition Clinical Impression: Abdominal pain, Colitis, Leukocytosis Disposition: ADMITTED IP TO THIS [facility] Condition: Serious Is patient prescribed a controlled substance at d/c from ED?: No Time of Disposition: Decision to Admit Reason: Admit from EC Decision Date: 10/05/24 Decision Time:
[2024-10-04 22:32] LABS: INR 1.1 (<1.2); Prothrombin Time 11.7 sec (10.0-12.5)
[2024-10-04 22:33] LABS: ALT 16 U/L (4-34); AST 28 U/L (14-36); African American GFR (CKD) 62 (>60 ml/min/1.73 sqM); Albumin 4.6 g/dL (3.5-5.0); Alkaline Phosphatase 86 U/L (38-126); Anion Gap 14 mmol/L; Blood Urea Nitrogen 23 mg/dL (7-17); Calcium 9.7 mg/dL (8.4-10.2); Carbon Dioxide 18 mmol/L (22-30); Chloride 100 mmol/L (98-107); Glucose 239 mg/dL (74-99); Lipase 113 U/L (23-300); Non-African American GFR(CKD) 54 (>60 ml/min/1.73 sqM); Sodium 132 mmol/L (137-145); Total Protein 7.3 g/dL (6.3-8.2)
[2024-10-04 22:36] LABS: Potassium 4.2 mmol/L (3.5-5.1)
[2024-10-04] MEDS: ACETAMINOPHEN IV (For NPO) 1,000 MG in EMPTY BAG 1 BAG IVPB ONE (22:42)
[2024-10-05] MEDS: MORPHINE SULFATE 4 MG/ML SYRINGE IVP STA (00:52)
--- NOTE | 2024-10-05 01:13 | CT ---
EXAM: CT Abdomen and Pelvis With Intravenous Contrast CLINICAL HISTORY: ITS.REASON CT Reason: abd pain TECHNIQUE: Axial computed tomography images of the abdomen and pelvis with intravenous contrast. CTDI is 14.2 mGy and DLP is 595.5 mGy-cm. This CT exam was performed using one or more of the following dose reduction techniques: automated exposure control, adjustment of the mA and/or kV according to patient size, and/or use of iterative reconstruction technique. COMPARISON: No relevant prior studies available. FINDINGS: Lung bases: Unremarkable. No mass. No consolidation. ABDOMEN: Liver: Hepatic steatosis. Gallbladder and bile ducts: Unremarkable. No calcified stones. No ductal dilation. Pancreas: Unremarkable. No mass. No ductal dilation. Spleen: Unremarkable. No splenomegaly. Adrenals: Unremarkable. No mass. Kidneys and ureters: Renal cysts. No hydronephrosis. Stomach and bowel: Severe wall thickening of the colon, preferentially involving the descending colon, consistent with severe colitis. Pericolonic edema. No obstruction. PELVIS: Appendix: No findings to suggest acute appendicitis. Bladder: Unremarkable. No mass. Reproductive: Unremarkable as visualized. ABDOMEN and PELVIS: Intraperitoneal space: Unremarkable. No free air. No significant fluid collection. Bones/joints: No acute fracture. No dislocation. Soft tissues: Unremarkable. Vasculature: Click aorta. No abdominal aortic aneurysm. Lymph nodes: Unremarkable. No enlarged lymph nodes. Other findings: No perforation or abscess. IMPRESSION: Severe wall thickening of the colon, preferentially involving the descending colon, consistent with severe colitis. Pericolonic edema.
[2024-10-05] MEDS ORDERED: ACETAMINOPHEN TAB 325 MG TAB PO PRN (01:35)
[2024-10-05] MEDS ORDERED: NALOXONE 0.4 MG/ML 1 ML VIAL IV PRN (01:35)
[2024-10-05] MEDS ORDERED: ONDANSETRON 4 MG/2 ML VIAL IVP PRN (01:35)
[2024-10-05] MEDS ORDERED: MORPHINE SULFATE 4 MG/ML SYRINGE IV PRN (01:35)
[2024-10-05] MEDS: PIPERACILLIN-TAZOBACTAM 3.375 GM in SODIUM CHLORIDE 0.9% 100 ML IVPB SCH (01:42)
[2024-10-05] MEDS: ZOLPIDEM 5 MG TAB PO STA (02:06)
[2024-10-05] MEDS: SODIUM CHLORIDE 0.9% 1,000 ML IV SCH (02:57)
[2024-10-05 06:11] LABS: Glucose,Whole Blood 202 mg/dL (70-110)
[2024-10-05] MEDS: HYDROcodone/APAP 5-325MG 1 EACH TAB PO PRN (06:22)
[2024-10-05] MEDS: INSULIN GLARGINE (LANTUS) 100 UNIT/ML SYR SQ SCH (06:22)
[2024-10-05] MEDS: INSULIN LISPRO (HumaLOG) 100 UNIT/ML 10 mL VL SQ SCH (06:24)
[2024-10-05 11:06] LABS: Glucose,Whole Blood 172 mg/dL (70-110)
--- NOTE | 2024-10-05 14:33 | P.GSCN ---
History of Present Illness History of present illness: 83-year-old female past medical history of A-fib, diabetes who presents emergency department with generalized abdominal pain. States that started this evening around 6:30 PM. Describes it as an intermittent, cramping sensation. She has not been able to have a bowel movement in 2 days. Son at bedside states that she fluctuates from taking Pepcid with laxatives. She does have a history of colitis. She denies any black or bloody stools. No diarrhea. No sick contacts with similar symptoms. No fevers. Denies dysuria, hematuria or difficulty voiding. No vaginal bleeding or discharge. She denies any chest pain or shortness of breath. No other alleviating, precipitating or modifying factors. Lasst colonoscopy within the last 2 years w/ GI. 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 05/17/23. History of Any Multi-Drug Resistant Organisms: None Reported Past Surgical History: No Surgical Hx Reported Additional Past Surgical History / Comment(s): colonoscopy, cataracts removed, malignant left breast core biopsy 05/17/23. Past Anesthesia/Blood Transfusion Reactions: No Reported Reaction Past Psychological History: No Psychological Hx Reported Smoking Status: Former smoker Past Alcohol Use History: Occasional Past Drug Use History: None Reported - Past Family History Mother Family Medical History: Cancer Additional Family Medical History / Comment(s): hodgkins Medications and Allergies Home Medications Medication Instructions Recorded Confirmed Type Acetaminophen [Tylenol Extra 500 mg PO DAILY PRN 10/18/21 03/29/24 History Strength] Betamethasone Dipropionate 1 applic TOPICAL DAILY 10/18/21 03/29/24 History [Diprolene 0.05% Lotion] Enalapril [Vasotec] 20 mg PO DAILY 10/18/21 03/29/24 History Zolpidem [Ambien] 10 mg PO HS PRN 10/18/21 03/29/24 History amLODIPine 10 mg PO DAILY 10/18/21 03/29/24 History metFORMIN HCL [Glucophage] 500 mg PO DAILY 10/18/21 03/29/24 History Metoprolol Tartrate [Lopressor] 12.5 mg PO BID 08/24/23 03/29/24 History Allergies Allergy/AdvReac Type Severity Reaction Status Date / Time VACCINES Allergy Unknown unable to Uncoded 10/04/24 21:47 take due to guillian barre. Surgical - Exam Osteopathic Statement: *. No significant issues noted on an osteopathic structural exam other than those noted in the History and Physical/Consult. Vital Signs Pulse Resp BP Pulse Ox 136 H 20 143/103 98 10/04/24 21:36 10/04/24 21:36 10/04/24 21:36 10/04/24 21:36 gen: nad cv: rrr pul: non labored breathing abd: soft, non distended, tender to palpation diffusely left greater than right , no guarding or rebound tenderness Results - Labs 10/04/24 22:15 10/04/24 22:15 Abnormal Lab Results - Last 24 Hours (Table) 10/04/24 10/04/24 10/04/24 Range/Units 22:05 22:15 22:15 WBC 19.32 H (4.50-10.00) 10*3/uL MCH 32.5 H (27.0-32.0) pg Immature Gran # 0.14 H (0.00-0.04) 10*3/uL Neutrophils # 16.46 H (1.80-7.70) 10*3/uL Monocytes # 1.35 H (0.20-1.00) 10*3/uL Sodium 132 L (137-145) mmol/L Carbon Dioxide 18 L (22-30) mmol/L BUN 23 H (7-17) mg/dL Glucose 239 H (74-99) mg/dL POC Glucose (mg/dL) (70-110) mg/dL Ur Leukocyte Esterase Small H (Negative) Urine WBC 7 H (0-5) /hpf Urine Bacteria Rare H (None) /hpf Hyaline Casts 3 H (0-2) /lpf 10/05/24 10/05/24 Range/Units 06:09 11:05 WBC (4.50-10.00) 10*3/uL MCH (27.0-32.0) pg Immature Gran # (0.00-0.04) 10*3/uL Neutrophils # (1.80-7.70) 10*3/uL Monocytes # (0.20-1.00) 10*3/uL Sodium (137-145) mmol/L Carbon Dioxide (22-30) mmol/L BUN (7-17) mg/dL Glucose (74-99) mg/dL POC Glucose (mg/dL) 202 H 172 H (70-110) mg/dL Ur Leukocyte Esterase (Negative) Urine WBC (0-5) /hpf Urine Bacteria (None) /hpf Hyaline Casts (0-2) /lpf Diabetes panel 10/04/24 Range/Units 22:15 Sodium 132 L (137-145) mmol/L Potassium 4.2 (3.5-5.1) mmol/L Chloride 100 (98-107) mmol/L Carbon Dioxide 18 L (22-30) mmol/L BUN 23 H (7-17) mg/dL Creatinine 0.98 (0.52-1.04) mg/dL Glucose 239 H (74-99) mg/dL Calcium 9.7 (8.4-10.2) mg/dL AST 28 (14-36) U/L ALT 16 (4-34) U/L Alkaline Phosphatase 86 (38-126) U/L Total Protein 7.3 (6.3-8.2) g/dL Albumin 4.6 (3.5-5.0) g/dL Calcium panel 10/04/24 Range/Units 22:15 Calcium 9.7 (8.4-10.2) mg/dL Albumin 4.6 (3.5-5.0) g/dL Pituitary panel 10/04/24 Range/Units 22:15 Sodium 132 L (137-145) mmol/L Potassium 4.2 (3.5-5.1) mmol/L Chloride 100 (98-107) mmol/L Carbon Dioxide 18 L (22-30) mmol/L BUN 23 H (7-17) mg/dL Creatinine 0.98 (0.52-1.04) mg/dL Glucose 239 H (74-99) mg/dL Calcium 9.7 (8.4-10.2) mg/dL Adrenal panel 10/04/24 Range/Units 22:15 Sodium 132 L (137-145) mmol/L Potassium 4.2 (3.5-5.1) mmol/L Chloride 100 (98-107) mmol/L Carbon Dioxide 18 L (22-30) mmol/L BUN 23 H (7-17) mg/dL Creatinine 0.98 (0.52-1.04) mg/dL Glucose 239 H (74-99) mg/dL Calcium 9.7 (8.4-10.2) mg/dL Total Bilirubin 1.0 (0.2-1.3) mg/dL AST 28 (14-36) U/L ALT 16 (4-34) U/L Alkaline Phosphatase 86 (38-126) U/L Total Protein 7.3 (6.3-8.2) g/dL Albumin 4.6 (3.5-5.0) g/dL Assessment and Plan Assessment: 83 yo female w/ colitis likely 2/[address] demonstrates significant thickening of the colon concerning for colitis, patient will need colonoscopy outpatient to rule out malignancy continue clear liquid diet, do not advance, continue IV abx Time with Patient: Less than 30
[2024-10-05 16:00] LABS: Glucose,Whole Blood 132 mg/dL (70-110)
--- NOTE | 2024-10-05 18:43 | P.HPIM ---
History of Present Illness H&P Date: 10/05/24 Chief Complaint: Abdominal pain 83-year-old female past medical history of A-fib, diabetes who presents emergency department with generalized abdominal pain. States that started this evening around 6:30 PM. Describes it as an intermittent, cramping sensation. She has not been able to have a bowel movement in 2 days. Son at bedside states that she fluctuates from taking Pepcid with laxatives. She does have a history of colitis. She denies any black or bloody stools. No diarrhea. No sick contacts with similar symptoms. No fevers. Denies dysuria, hematuria or di fficulty voiding. No vaginal bleeding or discharge. She denies any chest pain or shortness of breath. No other alleviating, precipitating or modifying factors Blood work completed in ED reveals WBC of 19.3, hemoglobin of 15 and platelet count of 334, sodium 132, potassium 4.2, BUN/creatinine of 23/0.98 and blood glucose of 239, PT of 11.7, lactic acid of 1.9 UA reveals small amount of leukocyte esterase and some WBCs CT of the abdomen reveals severe wall thickening of the colon preferentially involving the descending colon, consistent with severe colitis. Pericolonic edema Patient has been placed on IV antibiotics and is admitted for further treatment and surgical evaluation Review of Systems REVIEW OF SYSTEMS: CONSTITUTIONAL: No fever, no malaise, no fatigue. HEENT: No recent visual problems or hearing problems. Denied any sore throat. CARDIOVASCULAR: No chest pain, orthopnea, PND, no palpitations, no syncope. PULMONARY: No shortness of breath, no cough, no hemoptysis. GASTROINTESTINAL: No diarrhea, no nausea, no vomiting, positive for abdominal pain. NEUROLOGICAL: No headaches, no weakness, no numbness. HEMATOLOGICAL: Denies any bleeding or petechiae. GENITOURINARY: Denies any burning micturition, frequency, or urgency. MUSCULOSKELETAL/RHEUMATOLOGICAL: Denies any joint pain, swelling, or any muscle pain. ENDOCRINE: Denies any polyuria or polydipsia. The rest of the 14-point review of systems is negative. 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 05/17/23. History of Any Multi-Drug Resistant Organisms: None Reported Past Surgical History: No Surgical Hx Reported Additional Past Surgical History / Comment(s): colonoscopy, cataracts removed, malignant left breast core biopsy 05/17/23. Past Anesthesia/Blood Transfusion Reactions: No Reported Reaction Past Psychological History: No Psychological Hx Reported Smoking Status: Former smoker Past Alcohol Use History: Occasional Past Drug Use History: None Reported - Past Family History Mother Family Medical History: Cancer Additional Family Medical History / Comment(s): hodgkins Medications and Allergies Home Medications Medication Instructions Recorded Confirmed Type Enalapril [Vasotec] 20 mg PO DAILY 10/18/21 10/05/24 History Zolpidem [Ambien] 10 mg PO HS 10/18/21 10/05/24 History amLODIPine 10 mg PO DAILY 10/18/21 10/05/24 History metFORMIN HCL [Glucophage] 500 mg PO DAILY 10/18/21 10/05/24 History Metoprolol Succinate (ER) [Toprol 100 mg PO DAILY 10/05/24 10/05/24 History Xl] Allergies Allergy/AdvReac Type Severity Reaction Status Date / Time VACCINES Allergy Unknown unable to Uncoded 10/05/24 15:43 take due to guillian barre. Physical Exam Vitals: Vital Signs Temp Pulse Pulse Resp BP BP Pulse Ox 10/05/24 07:45 114 H 17 10/05/24 07:22 97.5 F L 114 H 17 136/77 95 10/05/24 02:00 97.8 F 109 H 16 140/77 95 10/05/24 01:36 98.2 F 10/04/24 23:58 103 H 18 132/85 97 10/04/24 22:46 18 123/90 10/04/24 21:36 136 H 20 143/103 98 Intake and Output 10/04/24 10/05/24 10/05/24 22:59 06:59 14:59 Other: Voiding Method Toilet # Voids 2 1 Weight 57.153 kg 57.153 kg General appearance: alert, in no apparent distress Head exam: Present: atraumatic, normocephalic, normal inspection Eye exam: Present: normal appearance, PERRL, EOMI. Absent: scleral icterus, conjunctival injection, periorbital swelling ENT exam: Present: normal exam, mucous membranes moist Neck exam: Present: normal inspection. Absent: tenderness, meningismus, lymphadenopathy Respiratory exam: Present: normal lung sounds bilaterally. Absent: respiratory distress, wheezes, rales, rhonchi, stridor Cardiovascular Exam: Present: tachycardia, irregular rhythm, normal heart sounds. Absent: systolic murmur, diastolic murmur, rubs, gallop, clicks GI/Abdominal exam: Present: soft, normal bowel sounds. Absent: distended, tenderness, guarding, rebound, rigid Extremities exam: Present: normal inspection, full ROM, normal capillary refill. Absent: tenderness, pedal edema, joint swelling, calf tenderness Back exam: Present: normal inspection Neurological exam: Present: alert, oriented X3, CN II-XII intact Psychiatric exam: Present: normal affect, normal mood Skin exam: Present: warm, dry, intact, normal color. Absent: rash Results CBC & Chem 7: 10/04/24 22:15 10/04/24 22:15 Labs: Abnormal Lab Results - Last 24 Hours (Table) 10/04/24 10/04/24 10/04/24 Range/Units 22:05 22:15 22:15 WBC 19.32 H (4.50-10.00) 10*3/uL MCH 32.5 H (27.0-32.0) pg Immature Gran # 0.14 H (0.00-0.04) 10*3/uL Neutrophils # 16.46 H (1.80-7.70) 10*3/uL Monocytes # 1.35 H (0.20-1.00) 10*3/uL Sodium 132 L (137-145) mmol/L Carbon Dioxide 18 L (22-30) mmol/L BUN 23 H (7-17) mg/dL Glucose 239 H (74-99) mg/dL POC Glucose (mg/dL) (70-110) mg/dL Ur Leukocyte Esterase Small H (Negative) Urine WBC 7 H (0-5) /hpf Urine Bacteria Rare H (None) /hpf Hyaline Casts 3 H (0-2) /lpf 10/05/24 10/05/24 Range/Units 06:09 11:05 WBC (4.50-10.00) 10*3/uL MCH (27.0-32.0) pg Immature Gran # (0.00-0.04) 10*3/uL Neutrophils # (1.80-7.70) 10*3/uL Monocytes # (0.20-1.00) 10*3/uL Sodium (137-145) mmol/L Carbon Dioxide (22-30) mmol/L BUN (7-17) mg/dL Glucose (74-99) mg/dL POC Glucose (mg/dL) 202 H 172 H (70-110) mg/dL Ur Leukocyte Esterase (Negative) Urine WBC (0-5) /hpf Urine Bacteria (None) /hpf Hyaline Casts (0-2) /lpf Thrombosis Risk Factor Assmnt - Choose All That Apply Any of the Below Risk Factors Present?: No Other Risk Factors: No Other congenital or acquired thrombophilia - If yes, enter type in comment: No Thrombosis Risk Factor Assessment Level: Very Low Risk Assessment and Plan Assessment: 1. Severe colitis CT of the abdomen reveals severe wall thickening of the colon, preferentially involving descending colon, consistent with severe colitis. Pericolonic edema Patient has been placed on IV Zosyn- ; blood cultures are completed -We will monitor CBC, CRP and procalcitonin Consult surgery 2. Leukocytosis/sepsis; due to colitis; patient remains on IV Zosyn -Further recommendations pending clinical course 3. Mild ASHLEY; IV fluid hydration; renal function electrolyte; avoid nephrotoxins and hypotension 4. Hyperglycemia/diabetes mellitus type 2; monitor Accu-Cheks before every meal and at bedtime with insulin sliding scale; we will plan to hold home dose of metformin 5. Hypertension; metoprolol 100 mg daily; amlodipine 10 mg daily; enalapril 20 mg daily 6. Insomnia/sleep disorder; Ambien 10 mg nightly DVT prophylaxis; SCDs/subcu heparin CODE STATUS; full code
[2024-10-05 20:18] LABS: Glucose,Whole Blood 142 mg/dL (70-110)
[2024-10-05] MEDS: METOPROLOL TARTRATE 12.5 MG TAB PO SCH (20:59)
[2024-10-05] MEDS: ZOLPIDEM 5 MG TAB PO PRN (23:33)
[2024-10-06 06:03] LABS: Glucose,Whole Blood 93 mg/dL (70-110)
[2024-10-06 07:33] LABS: Basophils # (A) 0.03 10*3/uL (0.00-0.10); Basophils % (A) 0.3 %; Eosinophils # (A) 0.10 10*3/uL (0.04-0.35); Eosinophils % (A) 0.9 %; HCT 33.1 % (37.2-46.3); Lymphocytes # (A) 0.84 10*3/uL (0.90-5.00); Lymphocytes % (A) 7.8 %; MCH 32.1 pg (27.0-32.0); MCHC 33.5 g/dL (32.0-37.0); MCV 95.7 fL (80.0-97.0); Monocytes # (A) 1.27 10*3/uL (0.20-1.00); Monocytes % (A) 11.9 %; Neutrophils # (A) 8.43 10*3/uL (1.80-7.70); Neutrophils % (A) 78.7 %; Platelet Count 216 10*3/uL (140-440); RBC 3.46 10*6/uL (4.10-5.20); RDW 13.2 % (11.5-14.5); WBC 10.71 10*3/uL (4.50-10.00)
[2024-10-06 07:46] LABS: HGB 11.1 g/dL (12.0-15.0)
[2024-10-06 07:47] LABS: African American GFR (CKD) 59 (>60 ml/min/1.73 sqM); Anion Gap 11 mmol/L; Blood Urea Nitrogen 16 mg/dL (7-17); Calcium 9.0 mg/dL (8.4-10.2); Carbon Dioxide 21 mmol/L (22-30); Chloride 102 mmol/L (98-107); Glucose 91 mg/dL (74-99); Non-African American GFR(CKD) 51 (>60 ml/min/1.73 sqM); Potassium 3.6 mmol/L (3.5-5.1); Sodium 134 mmol/L (137-145)
[2024-10-06] MEDS: amLODIPine 10 MG TAB PO SCH (08:01)
[2024-10-06 11:14] LABS: Glucose,Whole Blood 79 mg/dL (70-110)
[2024-10-06 16:24] LABS: Glucose,Whole Blood 87 mg/dL (70-110)
[2024-10-06 20:44] LABS: Glucose,Whole Blood 105 mg/dL (70-110)
--- NOTE | 2024-10-06 20:47 | P.PN ---
Subjective Patient seen and evaluated at bedside, patient resting comfortably no new complaints Objective - Vital Signs Vital signs: Vital Signs Temp 98.1 F 10/06/24 19:07 Pulse 101 H 10/06/24 19:07 Resp 17 10/06/24 19:07 BP 111/67 10/06/24 19:07 Pulse Ox 95 10/06/24 19:07 FiO2 Intake & Output 10/06/24 10/06/24 10/07/24 06:59 18:59 06:59 Other: Voiding Method Toilet Toilet # Voids 3 2 - Exam Cardiovascular regular rhythm Pulm nonlabored breathing Abdomen soft, minimally tender to palpation no guarding or rebound tenderness No acute distress - Labs CBC & Chem 7: 10/06/24 06:48 10/06/24 06:48 Labs: Abnormal Lab Results - Last 24 Hours (Table) 10/06/24 10/06/24 Range/Units 06:48 06:48 WBC 10.71 H (4.50-10.00) 10*3/uL RBC 3.46 L (4.10-5.20) 10*6/uL Hgb 11.1 L D (12.0-15.0) g/dL Hct 33.1 L (37.2-46.3) % MCH 32.1 H (27.0-32.0) pg Neutrophils # 8.43 H (1.80-7.70) 10*3/uL Lymphocytes # 0.84 L (0.90-5.00) 10*3/uL Monocytes # 1.27 H (0.20-1.00) 10*3/uL Sodium 134 L (137-145) mmol/L Carbon Dioxide 21 L (22-30) mmol/L Assessment and Plan Assessment: 83 yo female w/ colitis likely 2/[address] demonstrates significant thickening of the colon concerning for colitis, patient will need colonoscopy outpatient to rule out malignancy continue clear liquid diet, do not advance, continue IV abx Continue supportive care Time with Patient: Less than 30
[2024-10-07 06:46] LABS: Glucose,Whole Blood 71 mg/dL (70-110)
[2024-10-07 07:47] LABS: Basophils # (A) 0.03 X 10*3/uL (0.00-0.10); Basophils % (A) 0.5 %; Eosinophils # (A) 0.16 X 10*3/uL (0.04-0.35); Eosinophils % (A) 2.5 %; HCT 30.8 % (37.2-46.3); HGB 9.9 g/dL (12.0-15.0); Immature Grans, Automated 0.50 %; Lymphocytes # (A) 1.02 X 10*3/uL (0.90-5.00); Lymphocytes % (A) 16.2 %; MCH 31.3 pg (27.0-32.0); MCHC 32.1 g/dL (32.0-37.0); MCV 97.5 FL (80.0-97.0); Monocytes # (A) 0.92 X 10*3/uL (0.20-1.00); Monocytes % (A) 14.6 %; NRBC Per 100 WBC 0 X 10*3/uL (0.00-0.01); Neutrophils # (A) 4.13 X 10*3/uL (1.80-7.70); Neutrophils % (A) 65.7 %; Platelet Count 208 X 10*3/uL (140-440); RBC 3.16 X 10*6/uL (4.10-5.20); RDW 13.2 % (11.5-14.5); WBC 6.29 X 10*3/uL (4.50-10.00)
[2024-10-07] MEDS: FAMOTIDINE 20 MG/2 ML VIAL IV SCH (07:54)
[2024-10-07] MEDS: HEPARIN SODIUM,PORCINE 5,000 UNIT/ML 1 ML VIAL SQ SCH (07:54)
[2024-10-07 08:11] LABS: Anion Gap 11.70 mmol/L (4.00-12.00); BUN/Creat Ratio 9.80 Ratio (12.00-20.00); Blood Urea Nitrogen 9.8 mg/dL (9.0-27.0); Carbon Dioxide 20.3 mmol/L (21.6-31.8); Chloride 108 mmol/L (96-109); Glucose 69 mg/dL (70-110); Potassium 3.6 mmol/L (3.5-5.5); Sodium 140 mmol/L (135-145)
[2024-10-07 08:12] LABS: Calcium 8.5 mg/dL (8.7-10.3)
[2024-10-07 11:02] LABS: Glucose,Whole Blood 80 mg/dL (70-110)
--- NOTE | 2024-10-07 13:32 | P.PN ---
Subjective Progress Note Date: 10/07/24 SURGICAL PROGRESS NOTE CHIEF COMPLAINT: Abdominal pain HISTORY OF PRESENT ILLNESS: Patient reports decrease in abdominal pain. Denies any nausea or vomiting. She is having flatus no bowel movement. Afebrile. Mildly tachycardic improved. WBC 6.29 Hgb 9.9 PHYSICAL EXAM: VITAL SIGNS: Reviewed. GENERAL: Well-developed in no acute distress. ABDOMEN: Soft. distended. mild tenderness left lower quadrant. NEUROLOGIC: Alert and oriented. Cranial nerves II through XII grossly intact. ASSESSMENT: 1. 83 yo female w/ colitis likely 2/2 diverticulitis PLAN: - Continue antibiotics - Continue liquid diet - Continue supportive care - Encourage patient to ambulate - Patient will need colonoscopy outpatient to rule out malignancy Physician Comb Setter note has been reviewed by physician. Signing provider agrees with the documented findings, assessment, and plan of care. Attestation Patient seen and examined at bedside. Chief complaint of abdominal pain and found to have colitis. She still has some tenderness to palpation. I would recommend continuing liquid diet. Continue IV antibiotics as the patient states that she is having some improvement. Continue to follow. No plan for inpatient colonoscopy at this time. Would recommend follow-up as outpatient for colonoscopy planning after colitis episode has resolved. Milka Marion, Objective - Vital Signs Vital signs: Vital Signs Temp 97.7 F 10/07/24 07:50 Pulse 110 H 10/07/24 07:50 Resp 17 10/07/24 07:50 BP 136/85 10/07/24 07:50 Pulse Ox 94 L 10/07/24 07:50 FiO2 Intake & Output 10/06/24 10/07/24 10/07/24 18:59 06:59 18:59 Other: Voiding Method Toilet # Voids 2 5 1 - Labs CBC & Chem 7: 10/07/24 03:32 10/07/24 03:32 Labs: Abnormal Lab Results - Last 24 Hours (Table) 10/07/24 10/07/24 Range/Units 03:32 03:32 RBC 3.16 L (4.10-5.20) X 10*6/uL Hgb 9.9 L (12.0-15.0) g/dL Hct 30.8 L (37.2-46.3) % MCV 97.5 H (80.0-97.0) FL Carbon Dioxide 20.3 L (21.6-31.8) mmol/L Est GFR (CKD-EPI) 56 L (>=60) BUN/Creatinine Ratio 9.80 L (12.00-20.00) Ratio Glucose 69 L (70-110) mg/dL Calcium 8.5 L (8.7-10.3) mg/dL
[2024-10-07] MEDS: METOPROLOL SUCCINATE (ER) 100 MG TAB.ER.24H PO SCH (13:44)
[2024-10-07 16:17] LABS: Glucose,Whole Blood 108 mg/dL (70-110)
--- NOTE | 2024-10-07 19:38 | P.PN ---
Subjective 83-year-old female past medical history of A-fib, diabetes who presents emergency department with generalized abdominal pain. States that started this evening around 6:30 PM. Describes it as an intermittent, cramping sensation. She has not been able to have a bowel movement in 2 days. Son at bedside states that she fluctuates from taking Pepcid with laxatives. She does have a history of colitis. She denies any black or bloody stools. No diarrhea. No sick contacts with similar symptoms. No fevers. Denies dysuria, hematuria or diffic ulty voiding. No vaginal bleeding or discharge. She denies any chest pain or shortness of breath. No other alleviating, precipitating or modifying factors Blood work completed in ED reveals WBC of 19.3, hemoglobin of 15 and platelet count of 334, sodium 132, potassium 4.2, BUN/creatinine of 23/0.98 and blood glucose of 239, PT of 11.7, lactic acid of 1.9 UA reveals small amount of leukocyte esterase and some WBCs CT of the abdomen reveals severe wall thickening of the colon preferentially inv olving the descending colon, consistent with severe colitis. Pericolonic edema Patient has been placed on IV antibiotics and is admitted for further treatment and surgical evaluation 10/07 Patient on liquid diet and doing well with no nausea vomiting Her abdominal pain is not as bad before. She rated as 5/10 No bowel movement but she is passing a lot of gas She is not getting IV fluid She is complains from chronic low back pain for many years On exam her left abdomen tender with mild guarding Active Medications Generic Name Dose Route Start Last Admin Trade Name Freq PRN Reason Stop Dose Admin Acetaminophen 650 mg 10/05/24 01:35 Acetaminophen Tab 325 Mg Tab PO Q6HR PRN Mild Pain or Fever > 100.5 Hydrocodone Bitart/Acetaminophen 1 each 10/05/24 01:35 10/07/24 13:44 Hydrocodone/Apap 5-325mg 1 Each Tab PO 1 each Q4HR PRN Administration Moderate Pain (Scale 4 to 6) Amlodipine Besylate 10 mg 10/06/24 09:00 10/07/24 07:54 Amlodipine 10 Mg Tab PO 10 mg DAILY JACQUELINE Administration Famotidine 20 mg 10/08/24 09:00 Famotidine 20 Mg/2 Ml Vial IV DAILY [facility] Heparin Sodium (Porcine) 5,000 unit 10/07/24 09:00 10/07/24 07:54 Heparin Sodium,Porcine 5,000 Unit/Ml 1 Ml Vial SQ 5,000 unit Q12HR [facility] Administration Piperacillin Sod/Tazobactam 100 mls @ 25 mls/hr 10/05/24 01:15 10/07/24 17:45 Sod 3.375 gm/ Sodium Chloride IVPB 25 mls/hr Q8HR [facility] Administration Protocol Sodium Chloride 1,000 mls @ 75 mls/hr 10/05/24 01:45 10/07/24 08:02 Saline 0.9% IV Not Given .[id number] [facility] Insulin Glargine 10 unit 10/05/24 07:00 10/07/24 06:46 Insulin Glargine (Lantus) 100 Unit/Ml Syr SQ Not Given DAILY@0700 [facility] Insulin Human Lispro 0 unit 10/05/24 07:30 10/07/24 17:39 Insulin Lispro (Humalog) 100 Unit/Ml 10 Ml Vl SQ Not Given ACHS [facility] Protocol Lisinopril 40 mg 10/05/24 12:00 10/07/24 07:54 Lisinopril 20 Mg Tab PO 40 mg DAILY [facility] Administration Metoprolol Succinate 100 mg 10/07/24 13:15 10/07/24 13:44 Metoprolol Succinate (Er) 100 Mg Tab.Er.24h PO 100 mg DAILY [facility] Administration Morphine Sulfate 4 mg 10/05/24 01:35 Morphine Sulfate 4 Mg/Ml Syringe IV Q4HR PRN Severe Pain (Scale 7 to 10) Naloxone HCl 0.2 mg 10/05/24 01:35 Naloxone 0.4 Mg/Ml 1 Ml Vial IV Q2M PRN Opioid Reversal Ondansetron HCl 4 mg 10/05/24 01:35 Ondansetron 4 Mg/2 Ml Vial IVP Q8HR PRN Nausea And Vomiting Zolpidem Tartrate 10 mg 10/05/24 11:50 10/06/24 23:07 Zolpidem 5 Mg Tab PO 10 mg HS PRN Administration Insomnia Objective - Vital Signs Vital signs: Vital Signs Temp 97.7 F 10/07/24 07:50 Pulse 110 H 10/07/24 07:50 Resp 17 10/07/24 07:50 BP 136/85 10/07/24 07:50 Pulse Ox 94 L 10/07/24 07:50 FiO2 Intake & Output 10/06/24 10/07/24 10/07/24 18:59 06:59 18:59 Other: Voiding Method Toilet # Voids 2 5 1 - Exam GENERAL: The patient is alert and oriented x3, not in any acute distress. Well developed, well nourished. HEENT: Pupils are round and equally reacting to light. EOMI. No scleral icterus. No conjunctival pallor. Normocephalic, atraumatic. No pharyngeal erythema. No thyromegaly. CARDIOVASCULAR: S1 and S2 present. No murmurs, rubs, or gallops. PULMONARY: Chest is clear to auscultation, no wheezing , no crackles. -ABDOMEN: Soft, left abdomen tender with mild guarding, nondistended, normoactive bowel sounds. No palpable organomegaly. MUSCULOSKELETAL: No joint swelling or deformity. EXTREMITIES: No cyanosis, clubbing, or pedal edema. NEUROLOGICAL: Gross neurological examination did not reveal any focal deficits. SKIN: No rashes. no petechiae. - Labs CBC & Chem 7: 10/07/24 03:32 10/07/24 03:32 Labs: Abnormal Lab Results - Last 24 Hours (Table) 10/07/24 10/07/24 Range/Units 03:32 03:32 RBC 3.16 L (4.10-5.20) X 10*6/uL Hgb 9.9 L (12.0-15.0) g/dL Hct 30.8 L (37.2-46.3) % MCV 97.5 H (80.0-97.0) FL Carbon Dioxide 20.3 L (21.6-31.8) mmol/L Est GFR (CKD-EPI) 56 L (>=60) BUN/Creatinine Ratio 9.80 L (12.00-20.00) Ratio Glucose 69 L (70-110) mg/dL Calcium 8.5 L (8.7-10.3) mg/dL Assessment and Plan Assessment: 1. Severe acute colitis CT of the abdomen reveals severe wall thickening of the colon, preferentially involving descending colon, consistent with severe colitis. Pericolonic edema Patient has been placed on IV Zosyn- ; blood cultures are completed -We will monitor CBC, CRP and procalcitonin Consult surgery 2. Leukocytosis/sepsis; due to colitis; patient remains on IV Zosyn -Resolved 3. Mild ASHLEY; IV fluid hydration; renal function electrolyte; avoid nephrotoxins and hypotension. Resolved 4. Hyperglycemia/diabetes mellitus type 2; monitor Accu-Cheks before every meal and at bedtime with insulin sliding scale; we will plan to hold home dose of metformin 5. Hypertension; metoprolol 100 mg daily; amlodipine 10 mg daily; enalapril 20 mg daily 6. Insomnia/sleep disorder; Ambien 10 mg nightly DVT prophylaxis; SCDs/subcu heparin CODE STATUS; full code
[2024-10-07 20:36] LABS: Glucose,Whole Blood 88 mg/dL (70-110)
[2024-10-08 06:46] LABS: Glucose,Whole Blood 87 mg/dL (70-110)
[2024-10-08 09:15] LABS: HCT 37.8 % (37.2-46.3); HGB 11.9 g/dL (12.0-15.0); MCH 31.0 pg (27.0-32.0); MCHC 31.5 g/dL (32.0-37.0); MCV 98.4 FL (80.0-97.0); NRBC Per 100 WBC 0 X 10*3/uL (0.00-0.01); Platelet Count 288 X 10*3/uL (140-440); RBC 3.84 X 10*6/uL (4.10-5.20); RDW 13.1 % (11.5-14.5); WBC 6.10 X 10*3/uL (4.50-10.00)
[2024-10-08 09:16] LABS: Basophils # (A) 0.03 X 10*3/uL (0.00-0.10); Basophils % (A) 0.5 %; Eosinophils # (A) 0.21 X 10*3/uL (0.04-0.35); Eosinophils % (A) 3.4 %; Immature Grans, Automated 0.50 %; Lymphocytes # (A) 1.13 X 10*3/uL (0.90-5.00); Lymphocytes % (A) 18.5 %; Monocytes # (A) 0.78 X 10*3/uL (0.20-1.00); Monocytes % (A) 12.8 %; Neutrophils # (A) 3.92 X 10*3/uL (1.80-7.70); Neutrophils % (A) 64.3 %
[2024-10-08] MEDS: FAMOTIDINE 20 MG/2 ML VIAL IV SCH (11:21)
[2024-10-08 11:29] LABS: Glucose,Whole Blood 127 mg/dL (70-110)
--- NOTE | 2024-10-08 11:45 | P.PN ---
Subjective Progress Note Date: 10/08/24 SURGICAL PROGRESS NOTE CHIEF COMPLAINT: Abdominal pain HISTORY OF PRESENT ILLNESS: Patient reports she is starting to feel better. She reports decreased pain and her abdominal distention is starting to show improvement. She is having flatus. No bowel movement. Denies any nausea or vomiting. Afebrile. WBC 6.10 Hgb 11.9 PHYSICAL EXAM: VITAL SIGNS: Reviewed. GENERAL: Well-developed in no acute distress. ABDOMEN: Soft. Distended but less than yesterday. Tenderness left lower quadrant and right lower quadrant NEUROLOGIC: Alert and oriented. Cranial nerves II through XII grossly intact. ASSESSMENT: 1. Colitis PLAN: - Continue antibiotics - Continue clear liquid diet - Continue supportive care - Encourage patient to ambulate - Patient will need colonoscopy outpatient to rule out malignancy Physician Director Utilization Management note has been reviewed by physician. Signing provider agrees with the documented findings, assessment, and plan of care. Objective - Vital Signs Vital signs: Vital Signs Temp 97.9 F 10/08/24 06:59 Pulse 77 10/08/24 06:59 Resp 17 10/08/24 06:59 BP 142/81 10/08/24 06:59 Pulse Ox 97 10/08/24 06:59 FiO2 Intake & Output 10/07/24 10/08/24 10/08/24 18:59 06:59 18:59 Other: # Voids 1 3 - Labs CBC & Chem 7: 10/08/24 02:53 10/07/24 03:32 Labs: Abnormal Lab Results - Last 24 Hours (Table) 10/08/24 10/08/24 Range/Units 02:53 11:27 RBC 3.84 L (4.10-5.20) X 10*6/uL Hgb 11.9 L (12.0-15.0) g/dL MCV 98.4 H (80.0-97.0) FL MCHC 31.5 L (32.0-37.0) g/dL POC Glucose (mg/dL) 127 H (70-110) mg/dL
[2024-10-08 16:52] LABS: Glucose,Whole Blood 117 mg/dL (70-110)
--- NOTE | 2024-10-08 19:39 | P.PN ---
Subjective 83-year-old female past medical history of A-fib, diabetes who presents emergency department with generalized abdominal pain. States that started this evening around 6:30 PM. Describes it as an intermittent, cramping sensation. She has not been able to have a bowel movement in 2 days. Son at bedside states that she fluctuates from taking Pepcid with laxatives. She does have a history of colitis. She denies any black or bloody stools. No diarrhea. No sick contacts with similar symptoms. No fevers. Denies dysuria, hematuria or diffic ulty voiding. No vaginal bleeding or discharge. She denies any chest pain or shortness of breath. No other alleviating, precipitating or modifying factors Blood work completed in ED reveals WBC of 19.3, hemoglobin of 15 and platelet count of 334, sodium 132, potassium 4.2, BUN/creatinine of 23/0.98 and blood glucose of 239, PT of 11.7, lactic acid of 1.9 UA reveals small amount of leukocyte esterase and some WBCs CT of the abdomen reveals severe wall thickening of the colon preferentially inv olving the descending colon, consistent with severe colitis. Pericolonic edema Patient has been placed on IV antibiotics and is admitted for further treatment and surgical evaluation 10/07 Patient on liquid diet and doing well with no nausea vomiting Her abdominal pain is not as bad before. She rated as 5/10 No bowel movement but she is passing a lot of gas She is not getting IV fluid She is complains from chronic low back pain for many years On exam her left abdomen tender with mild guarding 10/08 Increased liquid diet and to full type Abdominal pain looks better at 2/10 , still with some tenderness No other new complaints pt is informed she will need colonoscopy as outpt to rule out malignancy Objective - Vital Signs Vital signs: Vital Signs Temp 98 F 10/08/24 14:10 Pulse 84 10/08/24 14:10 Resp 16 10/08/24 14:10 BP 132/81 10/08/24 14:10 Pulse Ox 97 10/08/24 14:10 FiO2 Intake & Output 10/08/24 10/08/24 10/09/24 06:59 18:59 06:59 Other: # Voids 3 4 - Exam GENERAL: The patient is alert and oriented x3, not in any acute distress. Well developed, well nourished. HEENT: Pupils are round and equally reacting to light. EOMI. No scleral icterus. No conjunctival pallor. Normocephalic, atraumatic. No pharyngeal erythema. No thyromegaly. CARDIOVASCULAR: S1 and S2 present. No murmurs, rubs, or gallops. PULMONARY: Chest is clear to auscultation, no wheezing , no crackles. -ABDOMEN: Soft, left abdomen tender with mild guarding, nondistended, normoactive bowel sounds. No palpable organomegaly. MUSCULOSKELETAL: No joint swelling or deformity. EXTREMITIES: No cyanosis, clubbing, or pedal edema. NEUROLOGICAL: Gross neurological examination did not reveal any focal deficits. SKIN: No rashes. no petechiae. - Labs CBC & Chem 7: 10/08/24 02:53 10/07/24 03:32 Labs: Abnormal Lab Results - Last 24 Hours (Table) 10/08/24 10/08/24 10/08/24 Range/Units 02:53 11:27 16:51 RBC 3.84 L (4.10-5.20) X 10*6/uL Hgb 11.9 L (12.0-15.0) g/dL MCV 98.4 H (80.0-97.0) FL MCHC 31.5 L (32.0-37.0) g/dL POC Glucose (mg/dL) 127 H 117 H (70-110) mg/dL Assessment and Plan Assessment: 1. Severe acute colitis CT of the abdomen reveals severe wall thickening of the colon, preferentially involving descending colon, consistent with severe colitis. Pericolonic edema Patient has been placed on IV Zosyn- ; blood cultures are completed -We will monitor CBC, CRP and procalcitonin Consult surgery 2. Leukocytosis/sepsis; due to colitis; patient remains on IV Zosyn -Resolved 3. Mild ASHLEY; IV fluid hydration; renal function electrolyte; avoid nephrotoxins and hypotension. Resolved 4. Hyperglycemia/diabetes mellitus type 2; monitor Accu-Cheks before every meal and at bedtime with insulin sliding scale; we will plan to hold home dose of metformin 5. Hypertension; metoprolol 100 mg daily; amlodipine 10 mg daily; enalapril 20 mg daily 6. Insomnia/sleep disorder; Ambien 10 mg nightly DVT prophylaxis; SCDs/subcu heparin CODE STATUS; full code
[2024-10-08 21:08] LABS: Glucose,Whole Blood 118 mg/dL (70-110)
[2024-10-09 06:12] LABS: Glucose,Whole Blood 110 mg/dL (70-110)
[2024-10-09 11:10] LABS: Glucose,Whole Blood 133 mg/dL (70-110)
--- NOTE | 2024-10-09 12:09 | P.PN ---
Subjective Progress Note Date: 10/09/24 SURGICAL PROGRESS NOTE CHIEF COMPLAINT: Abdominal pain HISTORY OF PRESENT ILLNESS: Patient tolerated the full liquids. She reports decreased abdominal pain. She is having flatus no bowel movement. Afebrile. Mildly tachycardic heart rate 101 PHYSICAL EXAM: VITAL SIGNS: Reviewed. GENERAL: Well-developed in no acute distress. ABDOMEN: Soft. mildly distended. mild Tenderness left lower quadrant and right lower quadrant NEUROLOGIC: Alert and oriented. Cranial nerves II through XII grossly intact. ASSESSMENT: 1. Colitis PLAN: - Continue antibiotics - Continue full liquid diet - Continue supportive care - Encourage patient to ambulate - Patient will need colonoscopy outpatient to rule out malignancy Physician Golf Club Repairer note has been reviewed by physician. Signing provider agrees with the documented findings, assessment, and plan of care. Objective - Vital Signs Vital signs: Vital Signs Temp 97.2 F L 10/09/24 07:52 Pulse 101 H 10/09/24 08:25 Resp 17 10/09/24 07:52 BP 146/77 10/09/24 07:52 Pulse Ox 97 10/09/24 07:52 FiO2 Intake & Output 10/08/24 10/09/24 10/09/24 18:59 06:59 18:59 Other: Voiding Method Toilet # Voids 4 2 - Labs CBC & Chem 7: 10/08/24 02:53 10/07/24 03:32 Labs: Abnormal Lab Results - Last 24 Hours (Table) 10/08/24 10/08/24 10/09/24 Range/Units 16:51 21:06 11:08 POC Glucose (mg/dL) 117 H 118 H 133 H (70-110) mg/dL
[2024-10-09 16:21] LABS: Glucose,Whole Blood 157 mg/dL (70-110)
[2024-10-09 22:03] LABS: Glucose,Whole Blood 140 mg/dL (70-110)
--- NOTE | 2024-10-09 22:09 | P.PN ---
Subjective 83-year-old female past medical history of A-fib, diabetes who presents emergency department with generalized abdominal pain. States that started this evening around 6:30 PM. Describes it as an intermittent, cramping sensation. She has not been able to have a bowel movement in 2 days. Son at bedside states that she fluctuates from taking Pepcid with laxatives. She does have a history of colitis. She denies any black or bloody stools. No diarrhea. No sick contacts with similar symptoms. No fevers. Denies dysuria, hematuria or diffic ulty voiding. No vaginal bleeding or discharge. She denies any chest pain or shortness of breath. No other alleviating, precipitating or modifying factors Blood work completed in ED reveals WBC of 19.3, hemoglobin of 15 and platelet count of 334, sodium 132, potassium 4.2, BUN/creatinine of 23/0.98 and blood glucose of 239, PT of 11.7, lactic acid of 1.9 UA reveals small amount of leukocyte esterase and some WBCs CT of the abdomen reveals severe wall thickening of the colon preferentially inv olving the descending colon, consistent with severe colitis. Pericolonic edema Patient has been placed on IV antibiotics and is admitted for further treatment and surgical evaluation 10/07 Patient on liquid diet and doing well with no nausea vomiting Her abdominal pain is not as bad before. She rated as 5/10 No bowel movement but she is passing a lot of gas She is not getting IV fluid She is complains from chronic low back pain for many years On exam her left abdomen tender with mild guarding 10/08 Increased liquid diet and to full type Abdominal pain looks better at 2/10 , still with some tenderness No other new complaints pt is informed she will need colonoscopy as outpt to rule out malignancy 10/09 Patient still on liquid diet Abdominal pain looks controlled No bowel movement not passing gas Patient understands that she will need eventually colonoscopy to rule out cancer On exam she still with little lower abdominal tenderness pt is still wiht significant symptoms and abd tendernss even if she can walk freely in her room with some limitaitnos Objective - Vital Signs Vital signs: Vital Signs Temp 97.6 F 10/09/24 14:00 Pulse 105 H 10/09/24 14:00 Resp 16 10/09/24 14:00 BP 130/81 10/09/24 14:00 Pulse Ox 96 10/09/24 14:00 FiO2 Intake & Output 10/09/24 10/09/24 10/10/24 06:59 18:59 06:59 Other: Voiding Method Toilet # Voids 2 2 - Exam GENERAL: The patient is alert and oriented x3, not in any acute distress. Well developed, well nourished. HEENT: Pupils are round and equally reacting to light. EOMI. No scleral icterus. No conjunctival pallor. Normocephalic, atraumatic. No pharyngeal erythema. No thyromegaly. CARDIOVASCULAR: S1 and S2 present. No murmurs, rubs, or gallops. PULMONARY: Chest is clear to auscultation, no wheezing , no crackles. -ABDOMEN: Soft, left abdomen tender with mild guarding, nondistended, normoactive bowel sounds. No palpable organomegaly. MUSCULOSKELETAL: No joint swelling or deformity. EXTREMITIES: No cyanosis, clubbing, or pedal edema. NEUROLOGICAL: Gross neurological examination did not reveal any focal deficits. SKIN: No rashes. no petechiae. - Labs CBC & Chem 7: 10/08/24 02:53 10/07/24 03:32 Labs: Abnormal Lab Results - Last 24 Hours (Table) 10/09/24 10/09/24 10/09/24 Range/Units 11:08 16:19 22:01 POC Glucose (mg/dL) 133 H 157 H 140 H (70-110) mg/dL Assessment and Plan Assessment: 1. Severe acute colitis CT of the abdomen reveals severe wall thickening of the colon, preferentially involving descending colon, consistent with severe colitis. Pericolonic edema Patient has been placed on IV Zosyn- ; blood cultures are completed -We will monitor CBC, CRP and procalcitonin Consult surgery 2. Leukocytosis/sepsis; due to colitis; patient remains on IV Zosyn -Resolved 3. Mild ASHLEY; IV fluid hydration; renal function electrolyte; avoid nephrotoxins and hypotension. Resolved 4. Hyperglycemia/diabetes mellitus type 2; monitor Accu-Cheks before every meal and at bedtime with insulin sliding scale; we will plan to hold home dose of metformin 5. Hypertension; metoprolol 100 mg daily; amlodipine 10 mg daily; enalapril 20 mg daily 6. Insomnia/sleep disorder; Ambien 10 mg nightly DVT prophylaxis; SCDs/subcu heparin CODE STATUS; full code
[2024-10-10 04:58] LABS: Basophils # (A) 0.03 10*3/uL (0.00-0.10); Basophils % (A) 0.7 %; Eosinophils # (A) 0.25 10*3/uL (0.04-0.35); Eosinophils % (A) 6.2 %; HCT 32.7 % (37.2-46.3); HGB 10.9 g/dL (12.0-15.0); Lymphocytes # (A) 1.13 10*3/uL (0.90-5.00); Lymphocytes % (A) 27.8 %; MCH 31.8 pg (27.0-32.0); MCHC 33.3 g/dL (32.0-37.0); MCV 95.3 fL (80.0-97.0); Monocytes # (A) 0.90 10*3/uL (0.20-1.00); Monocytes % (A) 22.2 %; Neutrophils # (A) 1.73 10*3/uL (1.80-7.70); Neutrophils % (A) 42.6 %; Platelet Count 289 10*3/uL (140-440); RBC 3.43 10*6/uL (4.10-5.20); RDW 12.5 % (11.5-14.5); WBC 4.06 10*3/uL (4.50-10.00)
[2024-10-10 07:11] LABS: Glucose,Whole Blood 105 mg/dL (70-110)
[2024-10-10 07:29] LABS: RBC Morphology Normal
[2024-10-10 08:07] LABS: Anion Gap 10.40 mmol/L (4.00-12.00); BUN/Creat Ratio 9.00 Ratio (12.00-20.00); Blood Urea Nitrogen 8.1 mg/dL (9.0-27.0); Calcium 9.1 mg/dL (8.7-10.3); Carbon Dioxide 20.6 mmol/L (21.6-31.8); Chloride 107 mmol/L (96-109); Glucose 96 mg/dL (70-110); Magnesium 1.8 mg/dL (1.5-2.4); Potassium 4.1 mmol/L (3.5-5.5); Sodium 138 mmol/L (135-145)
--- NOTE | 2024-10-10 10:00 | P.PN ---
Subjective Progress Note Date: 10/10/24 SURGICAL PROGRESS NOTE CHIEF COMPLAINT: Abdominal pain HISTORY OF PRESENT ILLNESS: Patient reporting her abdominal pain is improving. She is having flatus. Denies any bowel movement. Denies any nausea or vomiting. Abdominal distention resolved. Still having some mild tenderness left lower quadrant. Afebrile. Mild tachycardia improved. WBC 4 hemoglobin 10.9. PHYSICAL EXAM: VITAL SIGNS: Reviewed. GENERAL: Well-developed in no acute distress. ABDOMEN: Soft. Abdominal distention resolved. Mild tenderness palpation left lower quadrant NEUROLOGIC: Alert and oriented. Cranial nerves II through XII grossly intact. ASSESSMENT: 1. Colitis PLAN: - Continue antibiotics - Stay on full liquid diet for now - Continue supportive care - Encourage patient to ambulate - Patient will need colonoscopy outpatient to rule out malignancy Physician Broach Grinder note has been reviewed by physician. Signing provider agrees with the documented findings, assessment, and plan of care. Attestation Patient seen and examined at bedside on 10/10/2024. Presented with chief complaint of abdominal pain and concern for colitis. This appears to be improving. Her abdominal pain has mostly resolved. She is having flatus. She has not had any bowel movement as of yet since being admitted. She does state that she only has bowel movements twice a week. We will add senna and advance to low fiber diet. Outpatient colonoscopy recommended. Milka Marion, Objective - Vital Signs Vital signs: Vital Signs Temp 97.9 F 10/10/24 07:02 Pulse 79 10/10/24 07:02 Resp 18 10/10/24 07:02 BP 151/81 10/10/24 07:02 Pulse Ox 94 L 10/10/24 07:02 FiO2 Intake & Output 10/09/24 10/10/24 10/10/24 18:59 06:59 18:59 Intake Total 1860 Balance 1860 Intake: Oral 1860 Other: Voiding Method Toilet # Voids 2 6 - Labs CBC & Chem 7: 10/11/24 04:56 10/11/24 04:56 Labs: Abnormal Lab Results - Last 24 Hours (Table) 10/09/24 10/09/24 10/09/24 Range/Units 11:08 16:19 22:01 WBC (4.50-10.00) 10*3/uL RBC (4.10-5.20) 10*6/uL Hgb (12.0-15.0) g/dL Hct (37.2-46.3) % Neutrophils # (1.80-7.70) 10*3/uL Carbon Dioxide (21.6-31.8) mmol/L BUN (9.0-27.0) mg/dL BUN/Creatinine Ratio (12.00-20.00) Ratio POC Glucose (mg/dL) 133 H 157 H 140 H (70-110) mg/dL 10/10/24 10/10/24 Range/Units 04:01 04:01 WBC 4.06 L (4.50-10.00) 10*3/uL RBC 3.43 L (4.10-5.20) 10*6/uL Hgb 10.9 L (12.0-15.0) g/dL Hct 32.7 L (37.2-46.3) % Neutrophils # 1.73 L (1.80-7.70) 10*3/uL Carbon Dioxide 20.6 L (21.6-31.8) mmol/L BUN 8.1 L (9.0-27.0) mg/dL BUN/Creatinine Ratio 9.00 L (12.00-20.00) Ratio POC Glucose (mg/dL) (70-110) mg/dL
[2024-10-10 12:48] LABS: Glucose,Whole Blood 200 mg/dL (70-110)
[2024-10-10] MEDS: SENNOSIDES 8.6 MG TAB PO SCH (13:32)
[2024-10-10 16:46] LABS: Glucose,Whole Blood 99 mg/dL (70-110)
[2024-10-10 20:06] LABS: Glucose,Whole Blood 162 mg/dL (70-110)
--- NOTE | 2024-10-10 22:21 | P.PN ---
Subjective Progress Note Date: 10/10/24 83-year-old female past medical history of A-fib, diabetes who presents emergency department with generalized abdominal pain. States that started this evening around 6:30 PM. Describes it as an intermittent, cramping sensation. She has not been able to have a bowel movement in 2 days. Son at bedside states that she fluctuates from taking Pepcid with laxatives. She does have a history of colitis. She denies any black or bloody stools. No diarrhea. No sick contacts with similar symptoms. No fevers. Denies dysuria, hematuria or difficulty voiding. No vaginal bleeding or discharge. She denies any chest pain or shortness of breath. No other alleviating, precipitating or modifying factors Blood work completed in ED reveals WBC of 19.3, hemoglobin of 15 and platelet count of 334, sodium 132, potassium 4.2, BUN/creatinine of 23/0.98 and blood glucose of 239, PT of 11.7, lactic acid of 1.9 UA reveals small amount of leukocyte esterase and some WBCs CT of the abdomen reveals severe wall thickening of the colon preferentially involving the descending colon, consistent with severe colitis. Pericolonic edema Patient has been placed on IV antibiotics and is admitted for further treatment and surgical evaluation 10/07 Patient on liquid diet and doing well with no nausea vomiting Her abdominal pain is not as bad before. She rated as 5/10 No bowel movement but she is passing a lot of gas She is not getting IV fluid She is complains from chronic low back pain for many years On exam her left abdomen tender with mild guarding 10/08 Increased liquid diet and to full type Abdominal pain looks better at 2/10 , still with some tenderness No other new complaints pt is informed she will need colonoscopy as outpt to rule out malignancy 10/09 Patient still on liquid diet Abdominal pain looks controlled No bowel movement not passing gas Patient understands that she will need eventually colonoscopy to rule out cancer On exam she still with little lower abdominal tenderness pt is still with significant symptoms and abdominal tenderness even if she can walk freely in her room with some limitations 10/10/2024 Patient is seen in follow-up today continues on full liquid diet and tolerating requesting advancing diet with general surgery following. No plans of surgical intervention at this time and patient is maintained on antibiotics as well. Patient will need outpatient colonoscopy once this has resolved. Will continue soft diet and encouraged increase activity as tolerated with plans on possible discharge planning in the next 24 hours. Patient would like to go home. P atient reports her abdominal tenderness is significantly improved at this time. Review of systems: Constitutional: No reports of fatigue, fever, or chills Cardiovascular: No reports of chest pain or palpitations Respiratory: No reports of shortness of breath or cough GI: No reports of nausea, vomiting, or diarrhea, reports improvement in abdominal pain and requesting advancing diet : No reports of dysuria or retention Neurovascular: No reports of weakness or numbness Physical exam: GENERAL: The patient is alert and oriented x3, not in any acute distress. Well developed, thin built, elderly appearing HEENT: Pupils are round and equally reacting to light. EOMI. No scleral icterus. No conjunctival pallor. Normocephalic, atraumatic. No pharyngeal erythema. No thyromegaly. CARDIOVASCULAR: S1 and S2 muffled PULMONARY: Diminished breath sounds bilaterally otherwise chest is clear to auscultation, no wheezing , no crackles. ABDOMEN: Soft, redness noted, nondistended, normoactive bowel sounds. No palpable organomegaly. MUSCULOSKELETAL: No joint swelling or deformity. EXTREMITIES: No cyanosis, clubbing, or pedal edema. NEUROLOGICAL: Gross neurological examination did not reveal any focal deficits. SKIN: No rashes. no petechiae. Assessment: 1. Severe acute colitis, CT of the abdomen reveals severe wall thickening of the colon, preferentially involving descending colon, consistent with severe colitis. Pericolonic edema 2. Leukocytosis/sepsis; due to colitis; patient remains on IV Zosyn, resolved 3. Mild ASHLEY; IV fluid hydration; renal function electrolyte; avoid nephrotoxins and hypotension. Resolved 4. Hyperglycemia/with history of diabetes mellitus type 2, uncontrolled 5. Hypertension 6. Insomnia/sleep disorder GI prophylaxis DVT prophylaxis; SCDs/subcu heparin CODE STATUS; full code Plan: Patient on antibiotics with general surgery following no plans of intervention at this time recommended supportive care and conservative management with outpatient follow-up once results to discuss possible colonoscopy. Patient is currently continued on Zosyn at this time along with gentle hydration Will follow-up on repeat labs and encouraged increase activity as tolerated. Will monitor overnight for concern for increased diet and discuss possible disch arge planning in the next 24 hours Due to multiple complex medical issues, overall prognosis is guarded All medications have been reviewed The impression and plan of care has been dictated by Bee Perry, Nurse Practitioner as directed. Dr. Дмитрий MD I have performed a history and examination and MDM of this patient, discussed the same with the dictator, and agree with the dictator's assessment and plan as written ,documented as a scribe. Based on total visit time, I have performed more than 50% of the visit. Objective - Vital Signs Vital signs: Vital Signs Temp 97.9 F 10/10/24 07:02 Pulse 79 10/10/24 07:02 Resp 18 10/10/24 07:02 BP 151/81 10/10/24 07:02 Pulse Ox 94 L 10/10/24 07:02 FiO2 Intake & Output 10/09/24 10/10/24 10/10/24 18:59 06:59 18:59 Intake Total 1860 Balance 1860 Intake: Oral 1860 Other: Voiding Method Toilet Toilet # Voids 2 6 - Labs CBC & Chem 7: 10/10/24 04:01 10/10/24 04:01 Labs: Abnormal Lab Results - Last 24 Hours (Table) 10/09/24 10/09/24 10/10/24 Range/Units 16:19 22:01 04:01 WBC 4.06 L (4.50-10.00) 10*3/uL RBC 3.43 L (4.10-5.20) 10*6/uL Hgb 10.9 L (12.0-15.0) g/dL Hct 32.7 L (37.2-46.3) % Neutrophils # 1.73 L (1.80-7.70) 10*3/uL Carbon Dioxide (21.6-31.8) mmol/L BUN (9.0-27.0) mg/dL BUN/Creatinine Ratio (12.00-20.00) Ratio POC Glucose (mg/dL) 157 H 140 H (70-110) mg/dL 10/10/24 10/10/24 Range/Units 04:01 12:47 WBC (4.50-10.00) 10*3/uL RBC (4.10-5.20) 10*6/uL Hgb (12.0-15.0) g/dL Hct (37.2-46.3) % Neutrophils # (1.80-7.70) 10*3/uL Carbon Dioxide 20.6 L (21.6-31.8) mmol/L BUN 8.1 L (9.0-27.0) mg/dL BUN/Creatinine Ratio 9.00 L (12.00-20.00) Ratio POC Glucose (mg/dL) 200 H (70-110) mg/dL
[2024-10-11 06:05] LABS: Glucose,Whole Blood 108 mg/dL (70-110)
[2024-10-11 07:50] LABS: HCT 35.1 % (37.2-46.3); HGB 11.5 g/dL (12.0-15.0); MCH 31.9 pg (27.0-32.0); MCHC 32.8 g/dL (32.0-37.0); MCV 97.5 FL (80.0-97.0); NRBC Per 100 WBC 0 X 10*3/uL (0.00-0.01); Platelet Count 325 X 10*3/uL (140-440); RBC 3.60 X 10*6/uL (4.10-5.20); RDW 12.7 % (11.5-14.5); WBC 4.20 X 10*3/uL (4.50-10.00)
[2024-10-11 08:29] LABS: Anion Gap 11.80 mmol/L (4.00-12.00); BUN/Creat Ratio 10.18 Ratio (12.00-20.00); Blood Urea Nitrogen 11.2 mg/dL (9.0-27.0); Carbon Dioxide 22.2 mmol/L (21.6-31.8); Chloride 105 mmol/L (96-109); Glucose 108 mg/dL (70-110); Magnesium 2.1 mg/dL (1.5-2.4); Potassium 4.6 mmol/L (3.5-5.5); Sodium 139 mmol/L (135-145)
[2024-10-11 08:30] LABS: Calcium 9.5 mg/dL (8.7-10.3)
[2024-10-11 09:29] LABS: Basophils # (A) 0.04 X 10*3/uL (0.00-0.10); Basophils % (A) 1.0 %; Eosinophils # (A) 0.19 X 10*3/uL (0.04-0.35); Eosinophils % (A) 4.5 %; Immature Grans, Automated 1.20 %; Lymphocytes # (A) 1.12 X 10*3/uL (0.90-5.00); Lymphocytes % (A) 26.7 %; Monocytes # (A) 0.93 X 10*3/uL (0.20-1.00); Monocytes % (A) 22.1 %; Neutrophils # (A) 1.87 X 10*3/uL (1.80-7.70); Neutrophils % (A) 44.5 %
[2024-10-11 09:30] LABS: Macrocytosis (M) 2+ (None Seen)
[2024-10-11 11:55] LABS: Glucose,Whole Blood 146 mg/dL (70-110)
[2024-10-11] MEDS: LACTULOSE 20 GM/30 ML CUP PO SCH (14:03)
[2024-10-11 16:37] LABS: Glucose,Whole Blood 152 mg/dL (70-110)
[2024-10-11 20:12] LABS: Glucose,Whole Blood 186 mg/dL (70-110)
--- NOTE | 2024-10-11 22:33 | P.PN ---
Subjective Patient seen and evaluated at bedside, patient resting comfortably no new complaints Objective - Vital Signs Vital signs: Vital Signs Temp 97.8 F 10/11/24 13:56 Pulse 74 10/11/24 13:56 Resp 18 10/11/24 13:56 BP 144/93 10/11/24 13:56 Pulse Ox 98 10/11/24 13:56 FiO2 Intake & Output 10/11/24 10/11/24 10/12/24 06:59 18:59 06:59 Intake Total 1080 Output Total 3 Balance 1080 -3 Intake: Oral 1080 Output: Urine 3 Other: Voiding Method Toilet # Voids 2 # Bowel Movements 1 - Exam General No acute distress alert and oriented x 3 Cardiovascular regular rate rhythm Pulmonary nonrebreather Abdomen soft nontender nondistended no guarding or rebound tenderness - Labs CBC & Chem 7: 10/11/24 04:56 10/11/24 04:56 Labs: Abnormal Lab Results - Last 24 Hours (Table) 10/11/24 10/11/24 10/11/24 Range/Units 04:56 04:56 11:53 WBC 4.20 L (4.50-10.00) X 10*3/uL RBC 3.60 L (4.10-5.20) X 10*6/uL Hgb 11.5 L (12.0-15.0) g/dL Hct 35.1 L (37.2-46.3) % MCV 97.5 H (80.0-97.0) FL Immature Gran # 0.05 H (0.00-0.04) X 10*3/uL Macrocytosis (manual) 2+ A (None Seen) Est GFR (CKD-EPI) 50 L (>=60) BUN/Creatinine Ratio 10.18 L (12.00-20.00) Ratio POC Glucose (mg/dL) 146 H (70-110) mg/dL 10/11/24 10/11/24 Range/Units 16:35 20:10 WBC (4.50-10.00) X 10*3/uL RBC (4.10-5.20) X 10*6/uL Hgb (12.0-15.0) g/dL Hct (37.2-46.3) % MCV (80.0-97.0) FL Immature Gran # (0.00-0.04) X 10*3/uL Macrocytosis (manual) (None Seen) Est GFR (CKD-EPI) (>=60) BUN/Creatinine Ratio (12.00-20.00) Ratio POC Glucose (mg/dL) 152 H 186 H (70-110) mg/dL Assessment and Plan Assessment: 83-year-old female status post resolving colitis Obstipation multiple bowel regimen given Await for bowel function prior to discharge
--- NOTE | 2024-10-12 05:57 | P.PN ---
Subjective Progress Note Date: 10/11/24 83-year-old female past medical history of A-fib, diabetes who presents emergency department with generalized abdominal pain. States that started this evening around 6:30 PM. Describes it as an intermittent, cramping sensation. She has not been able to have a bowel movement in 2 days. Son at bedside states that she fluctuates from taking Pepcid with laxatives. She does have a history of colitis. She denies any black or bloody stools. No diarrhea. No sick contacts with similar symptoms. No fevers. Denies dysuria, hematuria or difficulty voiding. No vaginal bleeding or discharge. She denies any chest pain or shortness of breath. No other alleviating, precipitating or modifying factors Blood work completed in ED reveals WBC of 19.3, hemoglobin of 15 and platelet count of 334, sodium 132, potassium 4.2, BUN/creatinine of 23/0.98 and blood glucose of 239, PT of 11.7, lactic acid of 1.9 UA reveals small amount of leukocyte esterase and some WBCs CT of the abdomen reveals severe wall thickening of the colon preferentially involving the descending colon, consistent with severe colitis. Pericolonic edema Patient has been placed on IV antibiotics and is admitted for further treatment and surgical evaluation 10/07 Patient on liquid diet and doing well with no nausea vomiting Her abdominal pain is not as bad before. She rated as 5/10 No bowel movement but she is passing a lot of gas She is not getting IV fluid She is complains from chronic low back pain for many years On exam her left abdomen tender with mild guarding 10/08 Increased liquid diet and to full type Abdominal pain looks better at 2/10 , still with some tenderness No other new complaints pt is informed she will need colonoscopy as outpt to rule out malignancy 10/09 Patient still on liquid diet Abdominal pain looks controlled No bowel movement not passing gas Patient understands that she will need eventually colonoscopy to rule out cancer On exam she still with little lower abdominal tenderness pt is still with significant symptoms and abdominal tenderness even if she can walk freely in her room with some limitations 10/10/2024 Patient is seen in follow-up today continues on full liquid diet and tolerating requesting advancing diet with general surgery following. No plans of surgical intervention at this time and patient is maintained on antibiotics as well. Patient will need outpatient colonoscopy once this has resolved. Will continue soft diet and encouraged increase activity as tolerated with plans on possible discharge planning in the next 24 hours. Patient would like to go home. Carlyle montemayor reports her abdominal tenderness is significantly improved at this time. 10/11/2024 Patient is seen in follow-up today reports to feeling improved and tolerating diet although has not had a bowel movement as of yet. Being followed by general surgery and patient to remain hospitalized until having bowel movements. Patient is also continued on antibiotics in the form of Zosyn and will likely transition to a short course of Augmentin on discharge. Patient has been encouraged to increase activity as tolerated and sitting up in the chair with all meals. Adding lactulose along with Dulcolax suppository. Will plan for possible discharge planning in the next 24 hours once cleared by general surgery. Review of systems: Constitutional: No reports of fatigue, fever, or chills Cardiovascular: No reports of chest pain or palpitations Respiratory: No reports of shortness of breath or cough GI: No reports of nausea, vomiting, or diarrhea, reports improvement in abdominal pain and requesting advancing diet, no bowel movement as of yet : No reports of dysuria or retention Neurovascular: No reports of weakness or numbness Physical exam: GENERAL: The patient is alert and oriented x3 Well developed, thin built, elderly appearing HEENT: Pupils are round and equally reacting to light. EOMI. No scleral icterus. No conjunctival pallor. Normocephalic, atraumatic. No pharyngeal erythema. No thyromegaly. CARDIOVASCULAR: S1 and S2 muffled PULMONARY: Diminished breath sounds bilaterally otherwise chest is clear to auscultation, no wheezing , no crackles. ABDOMEN: Soft, nontender, nondistended, normoactive bowel sounds. No palpable organomegaly. MUSCULOSKELETAL: No joint swelling or deformity. EXTREMITIES: No cyanosis, clubbing, or pedal edema. NEUROLOGICAL: Gross neurological examination did not reveal any focal deficits. SKIN: No rashes. no petechiae. Assessment: 1. Severe acute colitis, CT of the abdomen reveals severe wall thickening of the colon, preferentially involving descending colon, consistent with severe colitis. Pericolonic edema 2. Leukocytosis/sepsis; due to colitis; patient remains on IV Zosyn, resolved 3. Mild ASHLEY; IV fluid hydration; renal function electrolyte; avoid nephrotoxins and hypotension. Resolved 4. Hyperglycemia/with history of diabetes mellitus type 2, uncontrolled 5. Hypertension 6. Insomnia/sleep disorder GI prophylaxis DVT prophylaxis; SCDs/subcu heparin CODE STATUS; full code Plan: Patient on antibiotics with general surgery following no plans of intervention at this time recommended supportive care and conservative management with outpatient follow-up once results to discuss possible colonoscopy. Patient is currently continued on Zosyn at this time along with gentle hydration. Per surgery patient is to have bowel movement prior to discharge and has not as of yet. Patient reports is passing gas. Will add lactulose as well as Dulcolax suppository and will be monitored overnight Will follow-up on repeat labs and encouraged increase activity as tolerated. Due to multiple complex medical issues, overall prognosis is guarded Probable discharge in the next 24 hours. Will transition to a short course of oral antibiotics on discharge The impression and plan of care has been dictated by Bee Perry, Nurse Practitioner as directed. Dr. Дмитрий MD I have performed a history and examination and MDM of this patient, discussed the same with the dictator, and agree with the dictator's assessment and plan as written ,documented as a scribe. Based on total visit time, I have performed more than 50% of the visit. Objective - Vital Signs Vital signs: Vital Signs Temp 98.2 F 10/12/24 01:20 Pulse 61 10/12/24 01:20 Resp 16 10/12/24 01:20 BP 131/64 10/12/24 01:20 Pulse Ox 96 10/12/24 01:20 FiO2 Intake & Output 10/11/24 10/11/24 10/12/24 06:59 18:59 06:59 Intake Total 1080 1080 Output Total 3 Balance 1080 -3 1080 Intake: Oral 1080 1080 Output: Urine 3 Other: Voiding Method Toilet # Voids 2 2 # Bowel Movements 1 - Labs CBC & Chem 7: 10/11/24 04:56 10/11/24 04:56 Labs: Abnormal Lab Results - Last 24 Hours (Table) 10/11/24 10/11/24 10/11/24 Range/Units 04:56 04:56 11:53 WBC 4.20 L (4.50-10.00) X 10*3/uL RBC 3.60 L (4.10-5.20) X 10*6/uL Hgb 11.5 L (12.0-15.0) g/dL Hct 35.1 L (37.2-46.3) % MCV 97.5 H (80.0-97.0) FL Immature Gran # 0.05 H (0.00-0.04) X 10*3/uL Macrocytosis (manual) 2+ A (None Seen) Est GFR (CKD-EPI) 50 L (>=60) BUN/Creatinine Ratio 10.18 L (12.00-20.00) Ratio POC Glucose (mg/dL) 146 H (70-110) mg/dL 10/11/24 10/11/24 Range/Units 16:35 20:10 WBC (4.50-10.00) X 10*3/uL RBC (4.10-5.20) X 10*6/uL Hgb (12.0-15.0) g/dL Hct (37.2-46.3) % MCV (80.0-97.0) FL Immature Gran # (0.00-0.04) X 10*3/uL Macrocytosis (manual) (None Seen) Est GFR (CKD-EPI) (>=60) BUN/Creatinine Ratio (12.00-20.00) Ratio POC Glucose (mg/dL) 152 H 186 H (70-110) mg/dL
[2024-10-12 06:12] LABS: Glucose,Whole Blood 128 mg/dL (70-110)
--- NOTE | 2024-10-12 08:01 | P.PN ---
Subjective Patient seen and evaluated at bedside, patient resting comfortably no new complaints, patient admits to having multiple bowel movements, non bloody. Objective - Vital Signs Vital signs: Vital Signs Temp 98.2 F 10/12/24 01:20 Pulse 61 10/12/24 01:20 Resp 16 10/12/24 01:20 BP 131/64 10/12/24 01:20 Pulse Ox 96 10/12/24 01:20 FiO2 Intake & Output 10/11/24 10/12/24 10/12/24 18:59 06:59 18:59 Intake Total 1080 Output Total 3 Balance -3 1080 Intake: Oral 1080 Output: Urine 3 Other: Voiding Method Toilet # Voids 2 # Bowel Movements 1 - Exam General No acute distress alert and oriented x 3 Cardiovascular regular rate rhythm Pulmonary nonrebreather Abdomen soft nontender nondistended no guarding or rebound tenderness - Labs CBC & Chem 7: 10/11/24 04:56 10/11/24 04:56 Labs: Abnormal Lab Results - Last 24 Hours (Table) 10/11/24 10/11/24 10/11/24 Range/Units 04:56 04:56 11:53 Immature Gran # 0.05 H (0.00-0.04) X 10*3/uL Macrocytosis (manual) 2+ A (None Seen) Est GFR (CKD-EPI) 50 L (>=60) BUN/Creatinine Ratio 10.18 L (12.00-20.00) Ratio POC Glucose (mg/dL) 146 H (70-110) mg/dL 10/11/24 10/11/24 10/12/24 Range/Units 16:35 20:10 06:12 Immature Gran # (0.00-0.04) X 10*3/uL Macrocytosis (manual) (None Seen) Est GFR (CKD-EPI) (>=60) BUN/Creatinine Ratio (12.00-20.00) Ratio POC Glucose (mg/dL) 152 H 186 H 128 H (70-110) mg/dL Assessment and Plan Assessment: 83-year-old female status post resolving colitis admits to having multiple bowel movements stable for discharge Time with Patient: Less than 30
[2024-10-12 08:43] VITALS: BP 162/84; PULSE 89; RESP 20; TEMP 99
[2024-10-12 10:08] LABS: Anion Gap 10.70 mmol/L (4.00-12.00); BUN/Creat Ratio 14.00 Ratio (12.00-20.00); Blood Urea Nitrogen 14.0 mg/dL (9.0-27.0); Calcium 8.5 mg/dL (8.7-10.3); Carbon Dioxide 19.3 mmol/L (21.6-31.8); Chloride 110 mmol/L (96-109); Glucose 112 mg/dL (70-110); Potassium 3.5 mmol/L (3.5-5.5); Sodium 140 mmol/L (135-145)
[2024-10-12 11:58] LABS: Glucose,Whole Blood 144 mg/dL (70-110)
== END 2024-10-12 13:28 | disposition home or self-care (01) | DRG 872 ==
LOC: EC 21:31 → 4SSUR 10-05 01:35 → OBSVTOIN 10-07 19:34
PROVIDERS: ADMIT Hospitalist; ATTEND Hospitalist
DX: A41.9 Sepsis, unspecified organism (principal); N17.9 Acute kidney failure, unspecified; K57.32 Diverticulitis of large intestine without perforation or abscess without bleeding; C50.912 Malignant neoplasm of unspecified site of left female breast; E11.65 Type 2 diabetes mellitus with hyperglycemia; I10 Essential (primary) hypertension; K52.9 Noninfective gastroenteritis and colitis, unspecified; G89.29 Other chronic pain; M54.50 Low back pain, unspecified; K59.00 Constipation, unspecified; G47.00 Insomnia, unspecified; Z79.4 Long term (current) use of insulin; Z79.84 Long term (current) use of oral hypoglycemic drugs; Z79.899 Other long term (current) drug therapy; Z87.19 Personal history of other diseases of the digestive system; Z87.891 Personal history of nicotine dependence
CPT/HCPCS: 36415; 74177; 80048; 80053; 81001; 83605; 83690; 83735; 84145; 85025; 85610; 93005; 96365; 96366; 96375; 99285